=== PATIENT | male | born 1940 | race Caucasian/White ===

== ENCOUNTER 2024-06-07 11:10 | Inpatient (IN) | payer MEDICARE, SELFPAY ==
[2024-06-07] VITALS (10 sets, daily range): BP systolic 127–185; BP diastolic 83–107; PULSE 61–78; RESP 16–19; TEMP 36.4–37; O2SAT 94–99; BMI 22.6
--- NOTE | 2024-06-07 11:21 | CT_ITS ---
WS: [id number] CTA HEAD AND NECK TECHNIQUE: Contrast enhanced CTA of the head and neck with coronal and sagittal reformatted images and maximum intensity projection (MIP) images. NASCET criteria utilized. CLINICAL INFORMATION: R facial droop, slurred speech, balance issues. COMPARISON: None. DLP: 440.[address] scans at [facility] use at least one of these dose optimization techniques: automated exposure control; mA and/or kV adjustment per patient size (includes targeted exams where dose is matched to clinical indication); or iterative reconstruction. FINDINGS: RIGHT: Less than 50% RIGHT ICA stenosis. Mild atheromatous plaque. LEFT: Less than 50% LEFT ICA stenosis. Mild atheromatous plaque. Codominant and patent vertebral arteries bilaterally. Straightening of the normal cervical doses. Moderate spondylitic changes. INTRACRANIAL CTA: Proximal basilar artery is patent. Mild segmental stenosis in the basilar artery. Normal vascularity to the FAMILY CONSUMER SCIENTIST territories bilaterally. Both ICAs are patent at the skull base. Mild cavernous carotid calcification. Small RIGHT A1 segment. Normal vascularity to the LINNETTE and MCA territories bilaterally. No proximal flow-limiting stenosis. CT/CT angio headneck* [id number] IMPRESSION: 1. Less than 50% cervical ICA stenosis bilaterally. 2. Mild atheromatous plaque at both carotid bulbs. 3. No evidence of flow-limiting intracranial stenosis. 4. Codominant and patent vertebral arteries bilaterally.
--- NOTE | 2024-06-07 11:21 | CT_ITS ---
WS: [id number] CT HEAD TECHNIQUE: Noncontrast CT of the head obtained from the skullbase to the vertex. CLINICAL INFORMATION: Symptoms of acute stroke COMPARISON: None. DLP: [address] scans at [facility] use at least one of these dose optimization techniques: automated exposure control; mA and/or kV adjustment per patient size (includes targeted exams where dose is matched to clinical indication); or iterative reconstruction. FINDINGS: No evidence of intracranial hemorrhage or mass effect. Ventricular system and basal cisterns are patent. Mild small vessel changes with moderate parenchymal volume loss. No extra-axial fluid collections. No evidence of mass or mass effect. Vascular calcification. Paranasal sinuses and mastoid air cells are well aerated. .Normal visualized soft tissues. CT/CT head thrombolytic [id number] IMPRESSION: 1. No evidence of intracranial hemorrhage or mass effect. 2. Mild small vessel changes. Moderate parenchymal volume loss. 3. No acute intracranial findings. Notified Michael Almanza MD at 06/07/2024 11:51 AM.
--- NOTE | 2024-06-07 11:21 | XR_ITS ---
WS: [id number] Exam: XR chest 1V portable [id number] Date/Time of Exam: 06/07/2024 12:06 PM Reason For Exam: stroke alert No priors. Lungs are fully expanded and clear. Normal cardiomediastinal silhouette. No pleural effusions. Advanced DJD of the RIGHT shoulder. XR/XR chest 1V portable [id number] IMPRESSION: 1. No acute cardiopulmonary finding.
[2024-06-07 11:26] LABS: Glucose Point of Care 229 mg/dL (70-110)
[2024-06-07 11:32] LABS: Hematocrit 40.4 % (37-53); Red Blood Count 4.25 10^6/uL (3.85-5.65); White Blood Count 7.54 10^3/uL (3.29-11.43)
[2024-06-07 11:33] LABS: Basophils # 0.1 10^3/uL (0.0-0.1); Basophils % 0.7 %; Eosinophils # 0.1 10^3/uL (0.0-0.8); Eosinophils % 0.8 %; Lymphocytes # 2.4 10^3/uL (0.8-4.8); Lymphocytes % 31.3 %; Mean Corpuscular HGB Conc 33.9 g/dL (30-55); Mean Corpuscular Hemoglobin 32.2 pg (27-33); Mean Corpuscular Volume 95.1 fl (82-101); Mean Platelet Volume 9.5 fL (7.4-10.4); Monocytes # 0.7 10^3/uL (0.2-0.9); Monocytes % 9.8 %; Neutrophils # 4.31 10^3/uL (1.8-7.7); Neutrophils % 57.1 %; Nucleated Red Blood Cells % 0 %; Platelet Count 170 10^3/cmm (157-399); Red Cell Distribution Width 13.2 % (12.1-15.1)
[2024-06-07 11:44] LABS: INR 0.97 (0.8-1.2)
[2024-06-07 11:45] LABS: Partial Thromboplastin Time 26.5 SECONDS (23.9-36.7)
[2024-06-07 11:49] LABS: Albumin Level 4.3 g/dL (3.5-5.2); Alcohol Level < 10 mg/dL (0-10); Alkaline Phosphatase 53 U/L (40-130); Blood Urea Nitrogen 17 mg/dL (8-23); Calcium 9.3 mg/dL (8.5-10.5); Carbon Dioxide 21 mmol/L (22-29); Chloride 101 mmol/L (98-107); Creatinine Clr Calc Pharmacy 49.6456; Glucose 252 mg/dL (65-115); Osmolality Calculated 288 mOsm/kg (285-295); Sodium 134 mmol/L (136-145); Total Bilirubin 0.4 mg/dL (0.15-1.2); Total Protein 7.3 g/dL (6.6-8.7)
--- NOTE | 2024-06-07 11:50 | ECG_ITS ---
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 Measurements Intervals [place] Rate: 67 P: 133 [place]: 165 QRS: 111 QRSD: 154 T: 64 QT: 418 QTc: 442 Interpretive Statements ECTOPIC ATRIAL RHYTHM RIGHT AXIS DEVIATION [QRS AXIS > 100] RIGHT BUNDLE BRANCH BLOCK [120+ ms QRS DURATION, UPRIGHT V1, 40+ ms S IN I/aVL/V4/V5/V6] No previous ECG available for comparison Electronically Signed On 06-08-2024 13:08:38 CDT by Isidro Rios M.D. [email or web address] [id number]
[2024-06-07] MEDS: iohexol 350 mg/mL 500 mL Btl (per mL) IV (11:54)
[2024-06-07 12:03] LABS: Alanine Aminotransferase 12 U/L (0-41); Anion Gap 15.9 (5-19); Aspartate Amino Transferase 20 U/L (0-40); Potassium 4.9 mmol/L (3.5-5.1)
[2024-06-07 12:28] LABS: Bacteria Urine None Seen /hpf; Hyaline Casts Urine 0-4 /lpf; RBC Urine 0-2 /hpf (0-2); Squamous Epithelial Cell Urine 0-5 /hpf (0-5); WBC Urine 0-5 /hpf (0-5)
[2024-06-07 12:38] LABS: Add Urine Culture? No; Add Urine Microscopic? YES; Bilirubin Urine Neg (Negative); Blood Urine Neg (Negative); Glucose Urine UA 4+ (Normal); Ketones Urine Negative (Negative); Leukocyte Esterase Urine Negative (Negative); Nitrate Urine Negative (Negative); Protein Urine Neg (Negative); Specific Gravity, Urine 1.015 (1.005-1.030); Urine Appearance Clear (CLEAR); Urine Color Yellow (Yellow); Urobilinogen Urine Norm (Negative); pH Urine 6 (5-7)
[2024-06-07 12:43] LABS: Amphetamines Screen Urine Negative (Negative); Barbiturates Screen Urine Negative (Negative); Benzodiazepines Screen Urine Negative (Negative); Cocaine Screen Urine Negative (Negative); Opiate Screen Urine Negative (Negative); PCP Screen Urine Negative (Negative); THC Screen Urine Negative (Negative)
--- NOTE | 2024-06-07 13:12 | W.ED.NEUROSD ---
HPI - Neuro Symptoms/Deficit General: Chief Complaint: Neuro Symptoms/Deficit Stated Complaint: stroke like symptoms (yesterday) Time Seen by Provider: 06/07/24 11:22 Source: patient and family Mode of arrival: wheelchair Limitations: no limitations History of Present Illness: 83-year-old male that yesterday around 2 PM with his to have right facial droop, slurred speech and difficulty walking. Patient reports to it as a balance or lightheadedness. However he does not ever get syncopal he has just gone to the wall to walk which is new findings. Brought in today after family finally convinced him to get checked out. Slurred speech has improved. Still has right facial droop and the difficulties in ambulation. Last Observed Normal: 14:00 (06/06/24) Related Data Home Medications ?Medication ?Instructions ?Recorded ?Confirmed amlodipine 5 mg tablet 5 mg PO DAILY 06/07/24 06/07/24 flaxseed oil 1,000 mg capsule 1,000 mg PO DAILY 06/07/24 06/07/24 glimepiride 4 mg tablet 4 mg PO DAILY 06/07/24 06/07/24 levothyroxine 25 mcg tablet 25 mcg PO QAM 06/07/24 06/07/24 lisinopril 40 mg tablet 40 mg PO DAILY 06/07/24 06/07/24 metformin 500 mg tablet,extended 2,000 mg PO DAILY 06/07/24 06/07/24 release 24 hr metoprolol succinate 25 mg 25 mg PO DAILY 06/07/24 06/07/24 tablet,extended release 24 hr tmxapjrh-lwg-dgefc acid 200 1 tab PO DAILY 06/07/24 06/07/24 mcg-vit K1 60 mcg-lycopene 600 mcg tablet (Men's Multivitamin) Allergies Allergy/AdvReac Type Severity Reaction Status Date / Time meprobamate (From Equanil) Allergy Intermediate ADR-Confusi Verified 06/07/24 10:06 on Review of Systems General: Reports: 10 or more systems reviewed and unremarkable except in HPI and below PFSH ED PFSH: Social History Smoking and tobacco/nicotine status: never used tobacco/nicotine NIH stroke score NIHSS: Level Of Consciousness - 1a: 0 Level Of Consciousness Questions - 1b: Both Correct Level Of Consciousness Commands - 1c: Both Correct Best Gaze - 2: Normal Visual Hassan - 3: No Visual Loss Facial Palsy - 4: Minor Paralysis Motor Arm Right - 5: No Drift Motor Arm Left - 5: No Drift Motor Leg Right - 6: No Drift Motor Leg Left - 6: No Drift Limb Ataxia - 7: Present In One Limb Sensory - 8: Normal Best Language - 9: No Aphasia Dysarthia - 10: Normal Extinction And Inattention - 11: 0 Score: Total Score: 2 Physical Exam Const: COMMON NORMALS: no acute distress, average body habitus, patient oriented x3, healthy appearing, alert and well nourished GENERAL APPEARANCE: well kempt and well developed ORIENTATION/CONSCIOUSNESS: Yes oriented to person, Yes oriented to place and Yes oriented to time HENMT: COMMON NORMALS: normocephalic, atraumatic, external ears normal and moist oral mucous membranes HEAD & SCALP: normocephalic and atraumatic EXTERNAL EAR: Yes external ears normal Eye: COMMON NORMALS: Equal, round and reactive pupils present, EOMs intact bilaterally and conjunctivae normal CONJUNCTIVA: Yes conjunctivae normal PUPIL: Yes Equal, round and reactive pupils present Neck/C-Spine: COMMON NORMALS: full ROM, no lymphadenopathy, supple and no meningeal signs Chest: CHEST: Yes Symmetrical chest wall rise and No Surgical scars present (Chest) Resp: COMMON NORMALS: normal respiratory effort, No retractions, No use of accessory muscles and clear to auscultation bilaterally AUSCULTATION: clear to auscultation bilaterally Cardio: COMMON NORMALS: regular rate, regular rhythm, S1 normal heart sound present, S2 normal heart sound present, No gallops present (Cardio), No clicks present (Cardio), No murmurs present (Cardio) and No rub (Cardio) RATE: regular rate RHYTHM: regular rhythm HEART SOUNDS: S1 normal heart sound present, S2 normal heart sound present and no murmurs PERIPHERAL PULSES: other (Radial pulses 2+ and symmetric) GI: COMMON NORMALS: Soft to palpation, non-tender and no masses INSPECTION: No abdominal distension PALPATION: Yes Soft to palpation, No Guarding due to palpation present (GI) and No Rebound tenderness present : COMMON NORMALS: Yes no CVA tenderness BLADDER/KIDNEY EXAM: Yes no CVA tenderness Back/Pelvis: COMMON NORMALS: no CVA tenderness Extremity: COMMON NORMALS: normal to inspection, full ROM, capillary refill normal and no clubbing, cyanosis or edema Neuro: COMMON NORMALS: patient oriented x3 SENSORIUM/ORIENTATION: Yes alert, Yes oriented to person, Yes oriented to place and Yes oriented to time MENINGEAL SIGNS: Yes no meningeal signs CRANIAL NERVES: Yes CN normal except as noted SPEECH: speech normal GAIT: Yes Ataxic gait present SENSORY EXAM: Yes extremities Psych: APPEARANCE: Yes well kempt Skin: COMMON NORMALS: no rashes or lesions noted, no wounds, turgor normal and no jaundice GENERAL SKIN EXAM: no rashes or lesions noted and turgor normal Course Vital Signs: Vital signs: Vital Signs Temperature 98.6 F 06/07/24 11:23 Pulse Rate 69 06/07/24 13:46 Respiratory Rate 18 06/07/24 13:46 Blood Pressure 147/107 06/07/24 12:53 Pulse Oximetry 99 06/07/24 12:53 Oxygen Delivery Me thod Room Air 06/07/24 12:27 MDM - Neuro Symptoms/Deficit Medical Decision Making Concern for left posterior cerebellar stroke. CTs have been normal. Patient does have some mild to moderate chronic stenosis on CTA. I spoke with patient and family and since he still having some symptoms. NIH is a 2. Will admit for stroke. Of note stroke alert called when patient was brought in. Outside the window for tPA due to time. No LVO for other interventions. Will get EKG, might have A-fib. Could be reason for his low severity CVA today. Will admit for further workup. Spoke with Dr. Curry. Lab Data 06/07/24 11:26 06/07/24 11:26 Radiology Impressions Chest X-Ray 06/07/24 11:21 IMPRESSION: 1. No acute cardiopulmonary finding. Head CT 06/07/24 11:21 IMPRESSION: 1. No evidence of intracranial hemorrhage or mass effect. 2. Mild small vessel changes. Moderate parenchymal volume loss. 3. No acute intracranial findings. Notified Michael Almanza MD at 06/07/2024 11:51 AM. Head/Neck CTA 06/07/24 11:21 IMPRESSION: 1. Less than 50% cervical ICA stenosis bilaterally. 2. Mild atheromatous plaque at both carotid bulbs. 3. No evidence of flow-limiting intracranial stenosis. 4. Codominant and patent vertebral arteries bilaterally. Laboratory Results WBC 7.54 10^3/uL (3.29-11.43) 06/07/24 11: RBC 4.25 10^6/uL (3.85-5.65) 06/07/24 11: Hgb 13.70 g/dL (11.27-16.99) 06/07/24 11:26 Hct 40.4 % (37-53) 06/07/24 11: MCV 95.1 fl (82-101) 06/07/24 11:26 MCH 32.2 pg (27-33) 06/07/24 11: MCHC 33.9 g/dL (30-55) 06/07/24 11: RDW 13.2 % (12.1-15.1) 06/07/24 11: Plt Count 170 10^3/cmm (157-399) 06/07/24 11: MPV 9.5 fL (7.4-10.4) 06/07/24 11:26 Neut % (Auto) 57.1 % 06/07/24 11:26 Lymph % (Auto) 31.3 % 06/07/24 11:26 [place] % (Auto) 9.8 % 06/07/24 11: Eos % (Auto) 0.8 % 06/07/24 11: Baso % (Auto) 0.7 % 06/07/24 11: Neut # (Auto) 4.31 10^3/uL (1.8-7.7) 06/07/24 11: Lymph # (Auto) 2.4 10^3/uL (0.8-4.8) 06/07/24 11:26 [place] # (Auto) 0.7 10^3/uL (0.2-0.9) 06/07/24 11: Eos # (Auto) 0.1 10^3/uL (0.0-0.8) 06/07/24 11: Baso # (Auto) 0.1 10^3/uL (0.0-0.1) 06/07/24 11:26 Nucleated RBC % (auto) 0 % 06/07/24 11: Nucleated RBCs # 0.0 /100WBC 06/07/24 11:26 PT 13.60 SECONDS (12.1-14.9) 06/07/24 11:26 INR 0.97 (0.8-1.2) 06/07/24 11:26 APTT 26.5 SECONDS (23.9-36.7) 06/07/24 11:26 Sodium 134 mmol/L (136-145) L 06/07/24 11:26 Potassium 4.9 mmol/L (3.5-5.1) 06/07/24 11:26 Chloride 101 mmol/L (98-107) 06/07/24 11:26 Carbon Dioxide 21 mmol/L (22-29) L 06/07/24 11:26 Anion Gap 15.9 (5-19) 06/07/24 11:26 BUN 17 mg/dL (8-23) 06/07/24 11:26 Creatinine 1.1 mg/dL (0.7-1.2) 06/07/24 11:26 GFR Calculation Not Reportable 06/07/24 11:26 Glucose 252 mg/dL (65-115) H 06/07/24 11:26 POC Glucose 229 mg/dL (70-110) H 06/07/24 11:22 Calculated Osmolality 288 mOsm/kg (285-295) 06/07/24 11:26 Calcium 9.3 mg/dL (8.5-10.5) 06/07/24 11:26 Total Bilirubin 0.4 mg/dL (0.15-1.2) 06/07/24 11:26 AST 20 U/L (0-40) 06/07/24 11:26 ALT 12 U/L (0-41) 06/07/24 11:26 Alkaline Phosphatase 53 U/L (40-130) 06/07/24 11:26 Total Protein 7.3 g/dL (6.6-8.7) 06/07/24 11:26 Albumin 4.3 g/dL (3.5-5.2) 06/07/24 11:26 Globulin 3.0 g/dL (1.3-4.6) 06/07/24 11:26 Urine Color Yellow (Yellow) 06/07/24 12:18 Urine Appearance Clear (CLEAR) 06/07/24 12:18 Urine pH 6 (5-7) 06/07/24 12:18 Ur Specific [place] 1.015 (1.005-1.030) 06/07/24 12:18 Urine Protein Neg (Negative) 06/07/24 12:18 Urine Glucose (UA) 4+ (Normal) H 06/07/24 12:18 Urine Ketones Negative (Negative) 06/07/24 12:18 Urine Blood Neg (Negative) 06/07/24 12:18 Urine Nitrate Negative (Negative) 06/07/24 12:18 Urine Bilirubin Neg (Negative) 06/07/24 12:18 Urine Urobilinogen Norm mg/dL (Negative) 06/07/24 12:18 Ur Leukocyte Esterase Negative (Negative) 06/07/24 12:18 Urine RBC 0-2 /hpf (0-2) 06/07/24 12:18 Urine WBC 0-5 /hpf (0-5) 06/07/24 12:18 Ur Squamous Epith Cells 0-5 /hpf (0-5) 06/07/24 12:18 Amorphous Sediment Not Reportable 06/07/24 12:18 Urine Bacteria None seen /hpf (NONE) 06/07/24 12:18 Hyaline Casts 0-4 /lpf H 06/07/24 12:18 Urine Opiates Screen Negative ng/mL (Negative) 06/07/24 12:18 Ur Barbiturates Screen Negative ng/mL (Negative) 06/07/24 12:18 Ur Phencyclidine Scrn Negative ng/mL (Negative) 06/07/24 12:18 Ur Amphetamines Screen Negative ng/mL (Negative) 06/07/24 12:18 U Benzodiazepines Scrn Negative ng/mL (Negative) 06/07/24 12:18 Urine Cocaine Screen Negative ng/mL (Negative) 06/07/24 12:18 U Marijuana (THC) Screen Negative ng/mL (Negative) 06/07/24 12:18 Ethyl Alcohol < 10 mg/dL (0-10) 06/07/24 11:26 All radiology interpretation(s) finalized by discharge (Personally viewed CT head and agree with no bleed. CTA also reviewed personally. No obvious LVO. X-ray unremarkable.) EKG Data EKG 1: I personally reviewed and interpreted this EKG as follows: EKG interpretation date: 06/07/24 EKG interpretation time: 14:06 Prior EKG tracings: not available for review Interpretation: Patient appears to have a slow A-fib, no visible P waves on EKG with a right bundle branch block as well. QTc is 442. AL interval is 165 however I am not sure what it is counting to measured the P waves. Other EKG comments: EKG was not brought to me at time of being performed. Critical Care Time Critical Care Time: Critical Care Time: Yes Total Critical Care Time: 37 Attestation: This case had a high probability of a clinically significant, sudden, or life threatening deterioration of this patient's condition which required my full and direct attention, intervention and personal management. Discharge Plan Discharge Patient Disposition: Admitted As Inpatient Clinical Impression: Cerebrovascular accident Qualifiers: CVA mechanism: embolism Precerebral and cerebral artery: unspecified cerebral artery Qualified Code(s): I63.40 - Cerebral infarction due to embolism of unspecified cerebral artery Condition: Stable Coding Level of Care Code ED Filler Spreader for Alexia Bhatt
[2024-06-07] MEDS: clopidogrel 75 mg Tablet PO (14:30)
[2024-06-07] MEDS: aspirin 325 mg Tablet PO (14:30)
--- NOTE | 2024-06-07 14:31 | PC.NURSE ---
updated pt on process for admission and delays
--- NOTE | 2024-06-07 15:11 | PM.HP ---
Providers/Chief Complaint Admitting Physician: Margie Curry MD Chief Complaint: stroke like symptoms (yesterday) History of Present Illness Lewis Downey is a 83 year old male with past medical history of hypertension, diabetes, MO long time ago (unable to provide history regarding that.), Presented to the hospital today with complaint of ataxia. Patient is a very poor historian. is present at bedside. Patient states that he has trouble getting up from a sitting position as he feels lightheaded dizzy and unsteady on his feet. However he states after little while he starts to feel better however has noticed he has to hold onto things. states that at baseline he has some mental slowness and it takes him a while to understand and process things and it has been like that for quite some time. No actual history of dementia. Yesterday he was out with his son and went to buy a tractor and had an uneventful day. Came home and went to bed. Son later called patient's and stated that dad was not acting right and maybe he had a stroke . Patient's main complaint is dizziness and unsteadiness. He states he will not go to rehab or to a nursing facility however is willing to get evaluated by physical therapy. Review of systems is negative except for the 2 symptoms above. Possibly has a facial droop however difficult to tell. CT head and CTA head and neck negative in ER. When seen at bedside telemetry does show an arrhythmia. Medications/Allergies Home Medications ?Medication ?Instructions ?Recorded ?Confirmed ?Last Taken ?Type amlodipine 5 mg tablet 5 mg PO DAILY 06/07/24 06/07/24 06/07/24 History flaxseed oil 1,000 mg capsule 1,000 mg PO DAILY 06/07/24 06/07/24 06/07/24 History glimepiride 4 mg tablet 4 mg PO DAILY 06/07/24 06/07/24 06/07/24 History levothyroxine 25 mcg tablet 25 mcg PO QAM 06/07/24 06/07/24 06/07/24 History lisinopril 40 mg tablet 40 mg PO DAILY 06/07/24 06/07/24 06/07/24 History metformin 500 mg tablet,extended 2,000 mg PO DAILY 06/07/24 06/07/24 06/07/24 History release 24 hr metoprolol succinate 25 mg 25 mg PO DAILY 06/07/24 06/07/24 06/07/24 History tablet,extended release 24 hr yulobpjd-hvl-gadfb acid 200 1 tab PO DAILY 06/07/24 06/07/24 06/07/24 History mcg-vit K1 60 mcg-lycopene 600 mcg tablet (Men's Multivitamin) Allergies Allergy/AdvReac Type Severity Reaction Status Date / Time meprobamate (From Equanil) Allergy Intermediate ADR-Confusi Verified 06/07/24 10:06 on PFSH Acute PFSH: Social History Smoking and tobacco/nicotine status: never used tobacco/nicotine Vitals/I&O/Wt Last Vital Signs Temp 98.6 F 06/07/24 11:23 Pulse 66 06/07/24 14:30 Resp 18 06/07/24 13:46 BP 165/107 06/07/24 14:30 Pulse Ox 99 06/07/24 14:30 O2 Del Method Room Air 06/07/24 12:27 Weight last 48 hrs Weight 69.853 kg Physical Exam Narrative: General: Alert oriented x3, patient seen in bed appearing comfortable at this time, at bedside. HEENT: Normocephalic, atraumatic, EOMI, breathing room air. Cardio: Sinus arrhythmia telemetry, variable S1-S2, Respiratory: Good bilateral air entry, no wheezes no rhonchi appreciated GI: Abdomen soft, nontender, nondistended, bowel sounds + Behavior: Appropriate and cooperative Extremities: No edema bilateral lower extremities Data 06/07/24 11:26 06/07/24 11:26 A&P Assessment and plan (1) Ataxia: (2) Dizziness: (3) Lightheadedness: (4) TIA (transient ischemic attack): (5) Arrhythmia: (6) Hypertension: (7) Diabetes mellitus: Plan #TIA? #Cognitive decline? #Ataxia, lightheadedness dizziness #Hypertension #Diabetes mellitus #History of remote MO. #Questionable arrhythmia on telemetry ? CT and CTA head is negative for stroke. ? Check MRI brain without contrast. Will rule out partial circulation stroke ? Possibly orthostatic hypotension? ? Seems to have symptoms with position change however has a poor historian. ? At 1 point complained of chest pain that he usually has however he states it only happened when he exerted himself. It was more like a tightness in his chest. ? Check troponins EKG ? Placed on telemetry, will monitor for arrhythmias ? Check hemoglobin A1c, lipid profile, TSH ? PT OT ? Speech therapy ? Blood pressure elevated 165/107. Symptoms started few days ago. ? Continue amlodipine 5 daily. ? Hold lisinopril. ? Hold, provide ? Low-dose intensity sliding scale insulin ? Will hold beta-steven. Full code DVT prophylaxis: Heparin SQ twice daily PDMP PDMP Reviewed: Not Reviewed Attestations Medical Necessity Statement*: Patient require workup for weakness dizziness, questionable ataxia, questionable arrhythmia. Diagnoses Ataxia R27.0 Dizziness R42 Lightheadedness R42 TIA (transient ischemic attack) G45.9 Arrhythmia I49.9 Hypertension I10 Diabetes mellitus E11.9
--- NOTE | 2024-06-07 15:22 | MRR_ITS ---
PROCEDURE INFORMATION: Exam: MR Head Without Contrast Exam date and time: 06/07/2024 4:38 PM Age: 83 years old Clinical indication: Weakness, extremity; Additional info: TIA? Stroke? , Lightheaded/dizzy, ataxia? TECHNIQUE: Imaging protocol: Magnetic resonance imaging of the head without contrast. COMPARISON: CT angio headneck* [id number] 06/07/2024 11:42 AM FINDINGS: Brain: No acute infarct. No hemorrhage. No edema. Moderate diffuse cerebral atrophy and FLAIR T2 hyperintense signal abnormality within the periventricular and deep white matter tracts consistent with chronic small vessel ischemic disease. Cerebral ventricles: Normal. No ventriculomegaly. Bones: Unremarkable. Paranasal sinuses: Normal as visualized. No acute sinusitis. Mastoid air cells: Normal as visualized. No mastoid effusion. Orbital cavities: Unremarkable. Soft tissues: Unremarkable. MR/MR head wo con* [id number] IMPRESSION: No acute ischemia.
[2024-06-07 15:52] LABS: Estmated Average Glucose 220; Hemoglobin A1C 9.3 % (4.0-6.0)
[2024-06-07 16:04] LABS: Cholesterol 184 mg/dL (0-200); HDL Cholesterol 40 mg/dL (60-100); LDL Cholesterol Calculated 109 mg/dL (50-129); Thyroid Stimulating Hormone 7.19 uIU/mL (0.27-4.20); Triglycerides 174 mg/dL (0-150); VLDL Cholestrol Calculation 35 mg/dL (0-30)
[2024-06-07] MEDS: heparin 5,000 unit/mL INJ 1 mL 5000 UNIT SUBCUT (16:16)
[2024-06-07] MEDS: sodium chloride 0.9% 1,000 ML 75 ML IV (16:16)
[2024-06-07 16:31] LABS: Vitamin B12 656 pg/mL (232-1245)
--- NOTE | 2024-06-07 17:24 | ECG_ITS ---
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 Measurements Intervals [place] Rate: 61 P: 57 MD: 166 QRS: 46 QRSD: 155 T: 37 QT: 429 QTc: 436 Interpretive Statements SINUS RHYTHM RIGHT BUNDLE BRANCH BLOCK [120+ ms QRS DURATION, UPRIGHT V1, 40+ ms S IN I/aVL/V4/V5/V6] Compared to ECG 06/07/2024 11:50:59 Ectopic atrial rhythm no longer present Right-axis deviation no longer present Electronically Signed On 06-08-2024 13:19:05 CDT by Isidro Rios M.D. [id number]
[2024-06-07 17:49] LABS: Troponin(5th) Baseline 19 ng/L (0-15)
[2024-06-07 19:29] LABS: Troponin 5 2HR 15.47 ng/L (0-15)
[2024-06-07 19:30] LABS: Troponin 5 2HR Delta -3.53 ABS# (0-10)
[2024-06-07] MEDS: atorvastatin 40 mg Tablet 80 MG PO (19:58)
--- NOTE | 2024-06-07 21:24 | ECG_ITS ---
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 Measurements Intervals [place] Rate: 73 P: 56 SD: 164 QRS: 54 QRSD: 157 T: 39 QT: 405 QTc: 448 Interpretive Statements SINUS RHYTHM RIGHT BUNDLE BRANCH BLOCK [120+ ms QRS DURATION, UPRIGHT V1, 40+ ms S IN I/aVL/V4/V5/V6] Compared to ECG 06/07/2024 16:01:37 No significant changes Electronically Signed On 06-08-2024 13:15:44 CDT by Isidro Rios M.D. [id number]
[2024-06-08] VITALS (8 sets, daily range): BP systolic 111–168; BP diastolic 73–97; PULSE 62–95; RESP 15–18; TEMP 36.4–36.6; O2SAT 94–96
--- NOTE | 2024-06-08 03:44 | ECG_ITS ---
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 Measurements Intervals [place] Rate: 59 P: 63 [place]: 166 QRS: 62 QRSD: 150 T: 46 QT: 423 QTc: 422 Interpretive Statements SINUS BRADYCARDIA RIGHT BUNDLE BRANCH BLOCK [120+ ms QRS DURATION, UPRIGHT V1, 40+ ms S IN I/aVL/V4/V5/V6] Compared to ECG 06/07/2024 20:57:09 Sinus rhythm no longer present Electronically Signed On 06-08-2024 13:00:04 CDT by Isidro Rios M.D. [id number]
[2024-06-08 03:59] LABS: Basophils % 0.7 %; Eosinophils # 0.1 10^3/uL (0.0-0.8); Eosinophils % 1.4 %; Hematocrit 36.1 % (37-53); Lymphocytes % 36.1 %; Mean Corpuscular HGB Conc 33.8 g/dL (30-55); Mean Corpuscular Hemoglobin 32.2 pg (27-33); Mean Corpuscular Volume 95.3 fl (82-101); Mean Platelet Volume 9.4 fL (7.4-10.4); Monocytes # 0.7 10^3/uL (0.2-0.9); Neutrophils # 2.76 10^3/uL (1.8-7.7); Neutrophils % 49.6 %; Nucleated Red Blood Cells % 0 %; Platelet Count 171 10^3/cmm (157-399); Red Blood Count 3.79 10^6/uL (3.85-5.65); Red Cell Distribution Width 13.2 % (12.1-15.1); White Blood Count 5.57 10^3/uL (3.29-11.43)
[2024-06-08 04:14] LABS: Blood Urea Nitrogen 15 mg/dL (8-23); Calcium 8.8 mg/dL (8.5-10.5); Carbon Dioxide 23 mmol/L (22-29); Chloride 106 mmol/L (98-107); Glucose 154 mg/dL (65-115); Magnesium 1.7 mg/dL (1.7-2.3); Osmolality Calculated 290 mOsm/kg (285-295); Sodium 138 mmol/L (136-145)
[2024-06-08 04:15] LABS: Anion Gap 12.8 (5-19); Potassium 3.8 mmol/L (3.5-5.1)
--- NOTE | 2024-06-08 04:16 | PC.NURSE ---
Patient c/o chest pain. Patient states it is worse when being touched. EKG taken. When placing EKG stickers on patient's chest, patient states that it hurt when I touched him. Patient states he has not been able to sleep all night. Dr. Vaz notified. 0.5 mg Ativan x1 ordered.
[2024-06-08] MEDS: heparin 5,000 unit/mL INJ 1 mL 5000 UNIT SUBCUT ×2 (04:26→17:29)
[2024-06-08] MEDS: LORazepam 0.5 mg Tablet PO (04:26)
[2024-06-08] MEDS: levothyroxine 25 mcg Tablet PO (04:26)
[2024-06-08] MEDS: sodium chloride 0.9% 1,000 ML 75 ML IV (04:27)
[2024-06-08] MEDS: pantoprazole DR 40 mg Tablet PO (08:12)
[2024-06-08] MEDS: clopidogrel 75 mg Tablet PO (08:13)
[2024-06-08] MEDS: aspirin 81 mg EC Tablet PO (08:13)
--- NOTE | 2024-06-08 12:19 | P.PN_ITS ---
Subjective 2 Subjective: Seen this morning. Overnight patient had an episode of chest pain. Ativan had to be given. Chest pain was reproducible to palpation in the middle of his chest. Patient did try to walk with physical therapy this morning however after walking up to the bathroom he got severely short of breath and started getting dizzy. He had to sit down. Orthostatic vitals were negative. MRI negative Telemetry reviewed: Intermittent bradycardia present. Vitals/I&O/Wt Last Vital Signs Temp 97.8 F 06/08/24 11:31 Pulse 72 06/08/24 11:31 Resp 15 06/08/24 11:31 BP 168/89 06/08/24 11:31 Pulse Ox 94 06/08/24 11:31 O2 Del Method Room Air 06/08/24 11:31 06/07/24 06/08/24 06/08/24 22:59 06:59 14:59 Intake Total 118 / 118 913.75 / 1031.75 120 / 120 Output Total 425 / 425 800 / 1225 Balance -307 / -307 113.75 / -193.25 120 / 120 Weight last 48 hrs Weight 67.993 kg Weight 67.358 kg Weight 69.853 kg Physical Exam 2 Narrative: General: Alert oriented x3, patient seen in bed appearing comfortable at this time, HEENT: Normocephalic, atraumatic, EOMI, breathing room air. Cardio: Sinus arrhythmia telemetry, variable S1-S2, Respiratory: Good bilateral air entry, no wheezes no rhonchi appreciated GI: Abdomen soft, nontender, nondistended, bowel sounds + Behavior: Appropriate and cooperative Extremities: No edema bilateral lower extremities Data 06/08/24 02:46 06/08/24 02:46 A&P Assessment and plan (1) Ataxia: (2) Dizziness: (3) Lightheadedness: (4) Arrhythmia: (5) Hypertension: (6) Diabetes mellitus: (7) Dyspnea on exertion: Plan # Lightheadedness dizziness, dyspnea on exertion., Possible arrhythmia? #Ataxia, lightheadedness dizziness #Hypertension #Diabetes mellitus #History of remote [place]. #Questionable arrhythmia on telemetry ? CT and CTA head is negative for stroke. ? Check MRI brain without contrast. Will rule out partial circulation stroke ? Possibly orthostatic hypotension? ? Seems to have symptoms with position change however has a poor historian. ? At 1 point complained of chest pain that he usually has however he states it only happened when he exerted himself. It was more like a tightness in his chest. ? Check troponins EKG ? Placed on telemetry, will monitor for arrhythmias ? Check hemoglobin A1c, lipid profile, TSH ? PT OT ? Speech therapy ? Blood pressure elevated 165/107. Symptoms started few days ago. ? Continue amlodipine 5 daily. ? Hold lisinopril. ? Hold, provide ? Low-dose intensity sliding scale insulin ? Will hold beta-steven. Full code DVT prophylaxis: Heparin SQ twice daily 06/08/2024 CT head negative, CTA head and neck negative Head MRI negative for stroke or ischemia does show chronic microvascular changes Patient is still symptomatic with his original complaint of dyspnea on exertion and dizziness upon exertion. Orthostatic vitals are negative. Question of underlying arrhythmia? Telemetry reviewed. Patient does have periods of bradycardia down to 48-49 however have not noted a value lower than that so far. ? Had an episode of chest pain overnight which was reproducible to palpation most likely musculoskeletal in origin however given patient's symptoms cardiac etiology cannot be ruled out. Baseline troponin 19, 15.47, 16.10. ? Continue to monitor in hospital on telemetry at this time ? Order stress testing for Monday morning. Patient agreeable. ? I will continue on aspirin Plavix atorvastatin until stress testing. ? Continue to hold beta-steven. Patient was on Toprol 25 daily. ? Will consider cardiology consult going forward. ? Stop IV fluids. ?Continue amlodipine 5 daily. ? Hold lisinopril from home. PDMP PDMP Reviewed: Not Reviewed Attestations 2 Medical Necessity Statement*: Patient will require inpatient monitoring on telemetry for possibility of underlying arrhythmia. Plan for stress test on Monday. Diagnoses Ataxia R27.0 Dizziness R42 Lightheadedness R42 Arrhythmia I49.9 Hypertension I10 Diabetes mellitus E11.9 Dyspnea on exertion R06.09
[2024-06-08] MEDS: amlodipine 5 mg Tablet PO (12:30)
--- NOTE | 2024-06-08 15:22 | USCV_ITS ---
Lewis Downey Age: 83 Gender: M : 1940 Exam Date: 06/08/2024 08:42 Ordering Phys: Margie Curry MD Technologist: Juventino Scott Exam Location: [facility] – [place] Indication: stroke, tia BP: 151 / 87 HR: 74 Rhythm: Sinus Technical Quality: Adequate MEASUREMENTS (Male / Female) Normal Values 2D ECHO LV Diastolic Diameter PLAX 4.8 cm 4.2 - 5.9 / 3.9 - 5.3 cm IVS Diastolic Thickness 1.5 cm 0.6 - 1.0 / 0.6 - 0.9 cm IVS Systolic Thickness 1.6 cm LVPW Diastolic Thickness 1.5 cm 0.6 - 1.0 / 0.6 - 0.9 cm LVPW Systolic Thickness 2.4 cm LVOT Diameter 2.0 cm LV Ejection Fraction 2D Teich 73.9 % LV Ejection Fraction MOD 4C 63.9 % LV Ejection Fraction MOD 2C 67.6 % LV Ejection Fraction 2C AL 68.9 % LA Diameter 3.4 cm RA Systolic Volume 4C AL 32.5 ml RA Systolic Volume 4C MOD 31.5 ml LA Sys Volume AL 45.6 cm cubed LA Sys Volume Index AL 25.3 cm cubed/m squared Aorta at Sinotubular Diameter 3.2 cm M-MODE LA Ao Ratio MM 1.3 AV Cusp Separation MM 1.4 cm DOPPLER AV Peak Velocity 154.3 cm/s LVOT Peak Velocity 88.0 cm/s AV Area Cont Eq vti 2.1 cm squared AV Area Cont Eq pk 1.8 cm squared MV Peak Velocity 116.0 cm/s MV Area PHT 3.0 cm squared Mitral E to A Ratio 0.5 TV Peak Velocity 197.0 cm/s TR Peak Velocity 202.0 cm/s TR Peak Gradient 16.3 mmHg TR Mean Velocity 165.0 cm/s TR Mean Gradient 11.2 mmHg TR Velocity Time Integral 72.0 cm PV Peak Velocity 93.0 cm/s RV Ejection Time 0.3 s FINDINGS Left Ventricle Normal left ventricular size and systolic function, EF 64%. Mild concentric left-ventricular hypertrophy.Grade I/IV diastolic dysfunction (abnormal relaxation filling pattern), normal to mildly elevated filling pressures. Right Ventricle The right ventricle is normal in size and function. Right Atrium The right atrium is normal in size. Left Atrium Mildly increased left atrial size. Mitral Valve Thickened mitral valve. Moderate mitral annular calcification. Aortic Valve Thickened aortic valve. Tricuspid Valve Trace tricuspid valve regurgitation. Estimated pulmonary artery peak systolic pressure possibly within normal limits Pulmonic Valve Pulmonic valve not well visualized. Pericardium Normal pericardium without effusion. Aorta Normal aortic annulus size. IVC Inferior vena cava not visualized. CONCLUSIONS Normal left ventricular size and systolic function, EF 64%. Mild concentric left-ventricular hypertrophy.Grade I/IV diastolic dysfunction (abnormal relaxation filling pattern), normal to mildly elevated filling pressures. Mildly increased left atrial size. Thickened mitral valve. Moderate mitral annular calcification. Thickened aortic valve. Trace tricuspid valve regurgitation. Estimated pulmonary artery peak systolic pressure possibly within normal limits. There is no pericardial effusion. No similar previous studies are available for comparison Dr Isidro Rios MD [facility] (Electronically Signed) Final Date: 08 June 2024 10:10 S
[2024-06-08] MEDS: atorvastatin 40 mg Tablet 80 MG PO (20:55)
[2024-06-09] VITALS (14 sets, daily range): BP systolic 146–171; BP diastolic 78–90; PULSE 66–77; RESP 16–18; TEMP 36.4–36.7; O2SAT 94–98
[2024-06-09 04:04] LABS: Basophils % 0.8 %; Eosinophils # 0.1 10^3/uL (0.0-0.8); Eosinophils % 1.6 %; Hematocrit 35.8 % (37-53); Lymphocytes # 1.8 10^3/uL (0.8-4.8); Lymphocytes % 36.5 %; Mean Corpuscular HGB Conc 33.8 g/dL (30-55); Mean Corpuscular Hemoglobin 31.3 pg (27-33); Mean Corpuscular Volume 92.7 fl (82-101); Mean Platelet Volume 9.2 fL (7.4-10.4); Monocytes # 0.5 10^3/uL (0.2-0.9); Monocytes % 10.5 %; Neutrophils % 50.4 %; Nucleated Red Blood Cells % 0 %; Platelet Count 151 10^3/cmm (157-399); Red Blood Count 3.86 10^6/uL (3.85-5.65); Red Cell Distribution Width 13.2 % (12.1-15.1); White Blood Count 4.96 10^3/uL (3.29-11.43)
[2024-06-09 04:32] LABS: Anion Gap 14.9 (5-19); Blood Urea Nitrogen 14 mg/dL (8-23); Calcium 8.7 mg/dL (8.5-10.5); Carbon Dioxide 21 mmol/L (22-29); Chloride 107 mmol/L (98-107); Creatinine Clr Calc Pharmacy 54.0211; Glucose 134 mg/dL (65-115); Magnesium 1.7 mg/dL (1.7-2.3); Osmolality Calculated 290 mOsm/kg (285-295); Potassium 3.9 mmol/L (3.5-5.1); Sodium 139 mmol/L (136-145)
[2024-06-09] MEDS: levothyroxine 25 mcg Tablet PO (05:05)
[2024-06-09] MEDS: heparin 5,000 unit/mL INJ 1 mL 5000 UNIT SUBCUT ×2 (05:05→16:47)
[2024-06-09] MEDS: amlodipine 5 mg Tablet PO (08:49)
[2024-06-09] MEDS: pantoprazole DR 40 mg Tablet PO (08:49)
[2024-06-09] MEDS: clopidogrel 75 mg Tablet PO (08:49)
[2024-06-09] MEDS: aspirin 81 mg EC Tablet PO (08:49)
--- NOTE | 2024-06-09 12:57 | P.PN_ITS ---
Subjective 2 Subjective: Patient still complains of dyspnea on exertion. Awaiting stress test in AM. Vitals/I&O/Wt Last Vital Signs Temp 97.7 F 06/09/24 11:16 Pulse 76 06/09/24 11:16 Resp 16 06/09/24 11:16 BP 165/89 06/09/24 11:16 Pulse Ox 96 06/09/24 11:16 O2 Del Method Room Air 06/09/24 11:16 06/08/24 06/09/24 06/09/24 22:59 06:59 14:59 Intake Total 240 / 1078.75 600 / 600 Balance 240 / 1078.75 600 / 600 Weight last 48 hrs Weight 67.449 kg Weight 67.993 kg Weight 67.358 kg Physical Exam 2 Narrative: General: Alert oriented x3, patient seen in bed appearing comfortable at this time, HEENT: Normocephalic, atraumatic, EOMI, breathing room air. Cardio: Sinus arrhythmia telemetry, variable S1-S2, Respiratory: Good bilateral air entry, no wheezes no rhonchi appreciated GI: Abdomen soft, nontender, nondistended, bowel sounds + Behavior: Appropriate and cooperative Extremities: No edema bilateral lower extremities Data 06/09/24 03:12 06/09/24 03:12 A&P Assessment and plan (1) Ataxia: (2) Dizziness: (3) Lightheadedness: (4) Arrhythmia: (5) Hypertension: (6) Diabetes mellitus: (7) Dyspnea on exertion: Plan # Lightheadedness dizziness, dyspnea on exertion., Possible arrhythmia? #Ataxia, lightheadedness dizziness #Hypertension #Diabetes mellitus #History of remote [place]. #Questionable arrhythmia on telemetry ? CT and CTA head is negative for stroke. ? Check MRI brain without contrast. Will rule out partial circulation stroke ? Possibly orthostatic hypotension? ? Seems to have symptoms with position change however has a poor historian. ? At 1 point complained of chest pain that he usually has however he states it only happened when he exerted himself. It was more like a tightness in his chest. ? Check troponins EKG ? Placed on telemetry, will monitor for arrhythmias ? Check hemoglobin A1c, lipid profile, TSH ? PT OT ? Speech therapy ? Blood pressure elevated 165/107. Symptoms started few days ago. ? Continue amlodipine 5 daily. ? Hold lisinopril. ? Hold, provide ? Low-dose intensity sliding scale insulin ? Will hold beta-steven. Full code DVT prophylaxis: Heparin SQ twice daily 06/08/2024 CT head negative, CTA head and neck negative Head MRI negative for stroke or ischemia does show chronic microvascular changes Patient is still symptomatic with his original complaint of dyspnea on exertion and dizziness upon exertion. Orthostatic vitals are negative. Question of underlying arrhythmia? Telemetry reviewed. Patient does have periods of bradycardia down to 48-49 however have not noted a value lower than that so far. ? Had an episode of chest pain overnight which was reproducible to palpation most likely musculoskeletal in origin however given patient's symptoms cardiac etiology cannot be ruled out. Baseline troponin 19, 15.47, 16.10. ? Continue to monitor in hospital on telemetry at this time ? Order stress testing for Monday. Patient agreeable. ? I will continue on aspirin Plavix atorvastatin until stress testing. ? Continue to hold beta-steven. Patient was on Toprol 25 daily. ? Will consider cardiology consult going forward. ? Stop IV fluids. ?Continue amlodipine 5 daily. ? Hold lisinopril from home. 06/09/2024 Plan for cardiac stress test in AM. Continue to monitor on telemetry Continue aspirin Plavix atorvastatin until stress test. Continue to hold beta- steven at this time. Continue amlodipine 10 mg daily. Placed on lisinopril 10 mg daily. N.p.o. tonight. PDMP PDMP Reviewed: Not Reviewed Attestations 2 Medical Necessity Statement*: Continue telemetry monitoring, stress test in AM. Diagnoses Ataxia R27.0 Dizziness R42 Lightheadedness R42 Arrhythmia I49.9 Hypertension I10 Diabetes mellitus E11.9 Dyspnea on exertion R06.09
--- NOTE | 2024-06-09 12:59 | ECG_ITS ---
[facility] Test Date: 2024-06-10 Pat Name: Lewis Downey Department: Room: 252 Gender: Male Radio Operator: : 1940 Requested By: Margie Curry Order Number: [id number] Silver MD: CHINMAY DELA CRUZ Interpretive Statements Lung unchanged pre/post procedure; Intraprocedure shortess of breath; Symptoms resoled by discharge NOTE: Please note that this is the electrocardiogram portion of the Lexiscan/Sestamibi stress test. The perfusion scan will be documented separately. DATA: Baseline heart rate was 65 beats per minute. Baseline blood pressure was 140/87 millimeters of mercury. Target heart rate was 137. Maximum heart rate achieved was 93. which was 67% of the predicted target heart rate. Maximum blood pressure was 146/90 millimeters of mercury. The reason for ending the test was completion of the protocol. The patient did not experience any symptoms. ELECTROCARDIOGRAM: BASELINE: Sinus rhythm. Normal axis. Incomplete right bundle branch block otherwise, no ST-T changes suggestive of ischemia noted. No arrhythmia noted. EXERCISE: After Lexiscan injection, no ST-T changes suggestive of ischemic noted. No arrhythmia noted. CONCLUSION: Please note due to baseline abnormality of the EKG specificity and sensitivity of the EKG portion of LexiScan MIBI stress test will be low 1. EKG not suggestive of ischemia 2. Lexiscan injection unremarkable. 3. Perfusion scan will be documented separately. Electronically Signed On 06-10-2024 19:19:49 CDT by CHINMAY DELA CRUZ [email or web address]
[2024-06-09] MEDS: lisinopril 10 mg Tablet PO (14:00)
[2024-06-09] MEDS: atorvastatin 40 mg Tablet 80 MG PO (21:34)
[2024-06-10] VITALS (10 sets, daily range): BP systolic 128–168; BP diastolic 72–94; PULSE 65–85; RESP 15–23; TEMP 36.4–37.1; O2SAT 95–99; BMI 22.5
[2024-06-10 03:13] LABS: Basophils # 0.1 10^3/uL (0.0-0.1); Eosinophils # 0.1 10^3/uL (0.0-0.8); Eosinophils % 1.5 %; Hematocrit 35.8 % (37-53); Lymphocytes # 1.9 10^3/uL (0.8-4.8); Lymphocytes % 36.9 %; Mean Corpuscular HGB Conc 33.5 g/dL (30-55); Mean Corpuscular Hemoglobin 31.3 pg (27-33); Mean Corpuscular Volume 93.2 fl (82-101); Mean Platelet Volume 9.6 fL (7.4-10.4); Monocytes # 0.6 10^3/uL (0.2-0.9); Monocytes % 11.9 %; Neutrophils # 2.53 10^3/uL (1.8-7.7); Neutrophils % 48.3 %; Nucleated Red Blood Cells % 0 %; Platelet Count 165 10^3/cmm (157-399); Red Blood Count 3.84 10^6/uL (3.85-5.65); Red Cell Distribution Width 13.1 % (12.1-15.1); White Blood Count 5.23 10^3/uL (3.29-11.43)
[2024-06-10 03:32] LABS: Anion Gap 14.9 (5-19); Blood Urea Nitrogen 16 mg/dL (8-23); Calcium 8.7 mg/dL (8.5-10.5); Carbon Dioxide 21 mmol/L (22-29); Chloride 106 mmol/L (98-107); Creatinine Clr Calc Pharmacy 48.9535; Glucose 159 mg/dL (65-115); Magnesium 1.8 mg/dL (1.7-2.3); Osmolality Calculated 291 mOsm/kg (285-295); Potassium 3.9 mmol/L (3.5-5.1); Sodium 138 mmol/L (136-145)
[2024-06-10] MEDS: levothyroxine 25 mcg Tablet PO (05:57)
[2024-06-10] MEDS: heparin 5,000 unit/mL INJ 1 mL 5000 UNIT SUBCUT ×2 (05:57→17:16)
[2024-06-10] MEDS: regadenoson 0.4 Mg/5 ml Syringe IVP (07:29)
[2024-06-10] MEDS: amlodipine 5 mg Tablet 10 MG PO (09:45)
[2024-06-10] MEDS: lisinopril 10 mg Tablet PO (09:46)
[2024-06-10] MEDS: pantoprazole DR 40 mg Tablet PO (09:46)
[2024-06-10] MEDS: aspirin 81 mg EC Tablet PO (09:46)
[2024-06-10] MEDS: clopidogrel 75 mg Tablet PO (09:46)
--- NOTE | 2024-06-10 10:03 | PC.NURSE ---
payroll and benefits coordinator rounds- gave patient stroke education book, patient says he is ready to eat and go home, stress test completed this am. RN and [employer] bedside as well.
--- NOTE | 2024-06-10 11:02 | PC.CHAP ---
Pastoral Care Encounter/Spiritual Assessment Type of Contact [] Declined electrical electronics engineers visit [] Patient/Family/Request visit [] Outpatient visit [] Follow-up visit [] Physician referral [] Code/Alert [x] Routine visit [] Staff referral [] Actively dying [] Patient sleeping [] Family support [] [] Out of room [] Palliative care [] [] Receiving care in room [] Pre-surgical visit [] Trauma [] Long length of stay [] ICU visit [] Other: Relational/Emotional Strength [] Patient feels connected with others/family/visitors/staff [] Distress [] Loneliness/isolation [] Abandonment Spirituality of Patient [x] Person of Naz [] Attends Religion of their Naz [x] Believes in Prayer [] Reads Bible or Moravian materials [] There are Spiritual issues to be addressed Director Security Risk Management Interventions [x] Prayer [x] Active listening [] Non-anxious presence [] Spiritual/emotional support [] Crisis/trauma care [] Spiritual counseling [] Bereavement support [] Provided bereavement packet [x] Provided Bible/devotional materials [] Provided toy/stuffed animal, coloring book to patient or family member [] Provided Communion [] Anointing/[place] [] Salvation [x] Completed spiritual assessment [] Other: Impact on Illness or Injury [] Angry [] Fearful [] Anxious [] Often cries [] Exhaustion [] Unable to work [] Unable to attend rastafari [] Unable to walk/stand [] Unable to read [] Unable to drive [] Unable to eat/drink [] Unable to sleep [] Unable to be with family [] Patient intubated [] Other: Summary Time spent with patient 10 min
--- NOTE | 2024-06-10 11:34 | PC.SOCIAL ---
IMM Update pg 2 of IMM Updated and reviewed w/ patient. Copy provided and copy dated, initialed and placed in chart.
--- NOTE | 2024-06-10 12:16 | PC.OT ---
hold OT treatment today due to stress test
--- NOTE | 2024-06-10 12:59 | NMCV_ITS ---
NM geri perf SPECT r/s* [id number] Lewis Downey Age: 83 Gender: M : 1940 Exam Date: 06/10/2024 07:04 Ordering Phys: Margie uCrry MD Technologist: ZAC Buenrostro Exam Location: [facility] Indications: CP STRESS TEST [facility] IMAGE PROTOCOL Rest/Stress 1 Lexiscan Day Radiopharmaceutical Dose (mCi) Administration Site Administered by Rest: Tc-99m 10.5 IV ZAC Buenrostro Sestamibi Stress:Tc-99m 33 IV ZAC Macdonald Sestamibi Rest: 10-Jun-2024 60 Discovery 630 Stress: 10-Jun-2024 30 Discovery 630 0.4mg Lexiscan. Images obtained in supine and prone position. SPECT RESULTS Technical Quality: Good Raw Data Analysis: Normal Image Corrections: No attenuation or motion correction applied Summed Stress Score: 0 Summed Rest Score: 0 Summed Difference Score: 0 PERFUSION FINDINGS Medium size area of mild to moderate reversibility noted in basal to distal inferior wall suggestive of RCA obstructive coronary artery disease. FUNCTIONAL RESULTS (calculated via Gated SPECT) Stress Image LV EF (%): 74 Stress EDV (mL):72 TID: 1.38 Stress ESV (mL):19 FUNCTIONAL FINDINGS: There is normal left ventricular systolic function. TID ratio is elevated which could be secondary to left ventricle hypertrophy/ Subendocardial ischemia however cannot rule out multivessel coronary artery disease IMPRESSIONS This study shows medium size area of moderate ischemia in the inferior wall of the left ventricle. EKG segment will be documented separately. Mitch Brown MD (Electronically Signed) Final Date: 10 June 2024 10:29 S
--- NOTE | 2024-06-10 13:52 | P.CONIM_ITS ---
<Statement entered by Mitch Brown MD - 06/10/24 20:47> Patient was evaluated and cared for in conjunction with an advanced practice practitioner. I personally examined the patient and reviewed the chart and all pertinent data including imaging, telemetry, and laboratory results. I discussed the patient in detail with the advanced practice practitioner. Please see their note for complete H&P testing result and agreed upon plan of care for the patient. 83-year-old male past medical history significant for smoking diabetes mellitus presented with TIA, he complained of worsening of shortness of breath with occasional chest pressure upon [id number] exertion for that he underwent stress test which turns out to be abnormal and positive in the inferior region. There is a reason we have been asked to assist in patient's care. GENERAL: Patient is alert, awake and oriented x3. HEART: Regular S1 and S2. No murmur, rub or gallop. LUNGS: Clear to auscultate bilaterally. CENTRAL NERVOUS SYSTEM: Grossly nonfocal. EXTREMITIES: Lower extremities with out edema bilaterally. Assessment and plan TIA Abnormal stress Worsening of shortness of breath could be angina: Hypertension Hyperlipidemia Diabetes mellitus Given moderate area of abnormality in the inferior region we will proceed with left heart cath tomorrow. Patient already is on clopidogrel and heparin. Will continue he will be n.p.o. overnight proceed with left heart cath in the morning. Patient has been explained all risk-benefit and alternative for the procedure he would like to proceed with it. Providers/Reason For Consult 2 Consulting Physician/Specialty*: Mitch Brown MD Reason for Consult*: Abnormal stress test Requesting Physician: Dr. Hazel Attending Physician: Christiana Hazel MD History of Present Illness History of Present Illness This is a very pleasant 83-year-old gentleman who came into the ER about 3 days ago with a main complaint of strokelike symptoms. Patient's daughter is present during the time of my evaluation. Per patient he was sitting on the tractor when his family member saw him slumped in his chair and he had developed facial drooping on the right side as well as loss of function on that side and slurred speech. This was transient and resolved once he came in. He denies any significant cardiac history. He states he has a history of hypertension and diabetes. States he is a former smoker. He states he does not know if he has high cholesterol. Blood pressure is currently high at 168/86. They were allowing permissive hypertension but have added amlodipine 10 mg p.o. today. Patient states he denies any recent chest pain. He states during his episode he had some palpitations. He did complain of shortness of breath on exertion that was chronic. Due to this he underwent a stress test. This showed a medium area of ischemia in the inferior wall. He does have a right bundle branch block seen on EKG. Creatinine is stable at 1.1. Troponin was stable at 19-15-16 with delta being negative. He denies any orthopnea, chest pain, or shortness of breath at this time. MRI of the brain as well as CT of head and neck was negative for stroke or carotid disease. He states he may have had a stroke in the past, but he is not sure. Echo was performed that showed normal EF with mild left-ventricular hypertrophy. Grade I/IV diastolic dysfunction was seen. Review of Systems 2 Narrative: Consitutional: denies fever, chills, body aches, or changes in appetite, denies abnormal weight loss Eyes: Denies changes in vision Card: Denies chest pain, palpitations, irregular heart rhythm, edema, syncope, reports shortness of breath on exertion relieved with rest, denies orthopnea, leg pain with exertion Resp: Denies shortness of breath, denies hemoptysis, denies cough GI: denies abdominal pain, denies nausea or voimting, denies blood in stool Musc: Denies extremity pain, denies limited range of motion or recent injury Skin: Denies rash, lesions, or wounds, denies changes to skin color Neuro: Denies nubmness in extremities, h/a, s/s of stroke Bobo: Denies easy bruiding/bleeding Medications/Allergies Home Medications ?Medication ?Instructions ?Recorded ?Confirmed ?Last Taken ?Type amlodipine 5 mg tablet 5 mg PO DAILY 06/07/2406/0706/07/24 History flaxseed oil 1,000 mg capsule 1,000 mg PO DAILY 06/07/24 06/07/24 History glimepiride 4 mg tablet 4 mg PO DAILY 06/07/2406/0706/07/24 History levothyroxine 25 mcg tablet 25 mcg PO QAM 06/07/2401/2106/07/24 History lisinopril 40 mg tablet 40 mg PO DAILY 06/07/2405/2806/07/24 History metformin 500 mg tablet,extended 2,000 mg PO DAILY 01/2106/07/24 06/07/24 History release 24 hr metoprolol succinate 25 mg 25 mg PO DAILY 06/07/2401/2106/07/24 History tablet,extended release 24 hr tdoffwqc-jcz-bwbin acid 200 1 tab PO DAILY 06/07/2406/07/24 History mcg-vit K1 60 mcg-lycopene 600 mcg tablet (Men's Multivitamin) Allergies Allergy/AdvReac Type Severity Reaction Status Date / Time meprobamate (From Equanil) Allergy Intermediate ADR-Confusi Verified 06/07/24 10:06 on Current Medications Generic Name Dose Route Start Last Admin Trade Name Freq PRN Reason Stop Dose Admin Amlodipine Besylate 10 mg 06/10/24 09:00 06/10/24 09:45 Amlodipine 5 Mg Tablet PO 10 mg DAILY CASPER Administration Aspirin 81 mg 06/08/24 09:00 06/10/24 09:46 Aspirin 81 Mg Ec Tablet PO 81 mg DAILY CASPER Administration Atorvastatin Calcium 80 mg 06/07/24 21:00 06/09/24 21:34 Atorvastatin 40 Mg Tablet PO 80 mg BEDTIME CASPER Administration Clopidogrel Bisulfate 75 mg 06/08/24 09:00 06/10/24 09:46 Clopidogrel 75 Mg Tablet PO 75 mg DAILY CASPER Administration Heparin Sodium (Porcine) 5,000 unit 06/08/24 06:00 06/10/24 05:57 Heparin 5,000 Unit/Ml Inj 1 Ml SUBCUT 5,000 unit Q12H CASPER Administration Levothyroxine Sodium 25 mcg 06/08/24 06:00 06/10/24 05:57 Levothyroxine 25 Mcg Tablet PO 25 mcg QAM CASPER Administration Lisinopril 10 mg 06/09/24 13:00 06/10/24 09:46 Lisinopril 10 Mg Tablet PO 10 mg DAILY CASPER Administration Pantoprazole Sodium 40 mg 06/08/24 09:00 06/10/24 09:[address] 40 Mg Tablet PO 40 mg DAILY CASPER Administration PFSH Acute 2 PFSH: Social History (Reviewed 06/07/24 @ 10:10 by RENETTA Chairez Smoking and tobacco/nicotine status: never used tobacco/nicotine Vitals/I&O/Wt Last Vital Signs Temp 97.5 F L 06/10/24 11:25 Pulse 72 06/10/24 11:25 Resp 23 H 06/10/24 11:25 BP 168/86 06/10/24 11:25 Pulse Ox 97 06/10/24 11:25 O2 Del Method Room Air 06/10/24 11:25 06/09/24 06/10/24 06/10/24 22:59 06:59 14:59 Intake Total 240 / 840 200 / 1040 240 / 240 Balance 240 / 840 200 / 1040 240 / 240 Weight last 48 hrs Weight 148 lb Weight 148 lb 11.2 oz Physical Exam 2 Narrative: General: No apparent distress, healthy appearing, well nourished HENMT: normoceophalic Neck: No carotid bruit bilaterally Muskuloskeletal: Full ROM Lymphatic: no lymphedema noted Respiratory: Normal respiratory effort, clear to auscultation bilaterally throughout all lung orozco, no use of accessory muscles Cardio: No JVD, regular rate, regular rhythm, S1 S2 normal, no murmurs, peripheral pulses 2+ radial palpated bilaterally, 2+ PT and DP palpated bilaterally Extremities: Full ROM, normal, normal capillary refill, no cyanosis or edema Neuro: Alert and oriented x4, no focal motor deficits Psych: Affect normal, denies suicidal ideation, mental status grossly normal Skin: No rashes or lesions noted, no wounds Data 06/10/24 01:50 06/10/24 01:50 A&P Assessment and plan (1) Hypertension: Qualifiers: Hypertension type: primary hypertension Qualified Code(s): I10 - Essential (primary) hypertension (2) Abnormal stress test: (3) Dyspnea on exertion: (4) TIA (transient ischemic attack): Plan At this time patient is stable. Due to abnormal stress test would recommend left heart cath possible PCI. We plan on doing this tomorrow at 7 AM. Patient was educated on the risks and benefits of this including but not limited to stroke, heart attack, bleeding, anesthetic complications, contrast induced nephropathy, and infection and agrees to proceed. Would recommend event monitor on discharge to rule out arrhythmias such as afib that could have caused the TIA. Patient agrees to this as well. Will go ahead and get limited echo with bubble study to rule out shunting caused by PFO. Thank you, Dr. Hazel, for allowing us to care for this very pleasant 83 year old gentleman. PDMP PDMP Reviewed: Not Reviewed Coding Level of Care Code Acute Code for Chg Fwd Diagnoses Primary hypertension I10 Hypertension type: primary hypertension Abnormal stress test R94.39 Dyspnea on exertion R06.09 TIA (transient ischemic attack) G45.9
--- NOTE | 2024-06-10 14:06 | USCV_ITS ---
Lewis Downey Age: 83 Gender: M : 1940 Exam Date: 06/10/2024 21:09 Ordering Phys: Romy Jimenez NP Technologist: PENNY Exam Location: [facility] [place] Indication: cryptogenic stroke / TIA BP: 128 / 82 HR: 79 Rhythm: Sinus Technical Quality: Adequate MEASUREMENTS (Male / Female) Normal Values FINDINGS Left Ventricle Normal left ventricular size, systolic function and wall thickness, with no regional wall motion abnormalities. Left ventricular ejection fraction is estimated at 55 %. Right Ventricle Right Atrium Left Atrium Mitral Valve Aortic Valve Tricuspid Valve Pulmonic Valve Pericardium Aorta IVC CONCLUSIONS Limited echo to asses presence of PFO with bubble study Normal left ventricular size, systolic function and wall thickness, with no regional wall motion abnormalities. Left ventricular ejection fraction is estimated at 55 %. Bubble study was negative, there is no PFO or intracardiac shunt noted. Mitch Brown MD (Electronically Signed) Final Date: 12 June 2024 09:07 S
--- NOTE | 2024-06-10 18:06 | P.PN_ITS ---
Subjective 2 Subjective: Patient underwent stress test this morning which was reported as abnormal. He denies any current chest pain at this time. Medications: Reviewed: Yes Vitals/I&O/Wt Last Vital Signs Temp 98.3 F 06/10/24 16:07 Pulse 79 06/10/24 16:07 Resp 17 06/10/24 16:07 BP 128/82 06/10/24 16:07 Pulse Ox 95 06/10/24 16:07 O2 Del Method Room Air 06/10/24 16:07 06/10/24 06/10/24 06/10/24 06:59 14:59 22:59 Intake Total 200 / 1040 240 / 240 240 / 480 Balance 200 / 1040 240 / 240 240 / 480 Weight last 48 hrs Weight 67.132 kg Weight 67.449 kg Physical Exam 2 Narrative: General: No acute distress, AO x3 HEENT: PERRLA, pupils bilaterally equal and reactive, pallors not present Chest: Normal vesicular breath sounds, no added sounds, equal good air entry bilaterally CVS: S1-S2 regular, no murmurs, no tachycardia, no gallops, no rubs Abdomen: Soft, nontender, no organomegaly, bowel sounds present Neuro: No focal deficits, no facial deformity, AO x3, power 5/5 in all limbs Data 06/10/24 01:50 06/10/24 01:50 Other data: IMPRESSIONS This study shows medium size area of moderate ischemia in the inferior wall of the left ventricle. EKG segment will be documented separately. A&P Assessment and plan (1) Ataxia: (2) Dizziness: (3) Lightheadedness: (4) Arrhythmia: (5) Hypertension: Qualifiers: Hypertension type: primary hypertension Qualified Code(s): I10 - Essential (primary) hypertension (6) Diabetes mellitus: (7) Dyspnea on exertion: Plan # Lightheadedness dizziness, dyspnea on exertion., Possible arrhythmia? #Ataxia, lightheadedness dizziness #Hypertension #Diabetes mellitus #History of remote CO. #Questionable arrhythmia on telemetry ? CT and CTA head is negative for stroke. ? Check MRI brain without contrast. Will rule out partial circulation stroke ? Possibly orthostatic hypotension? ? Seems to have symptoms with position change however has a poor historian. ? At 1 point complained of chest pain that he usually has however he states it only happened when he exerted himself. It was more like a tightness in his chest. ? Check troponins EKG ? Placed on telemetry, will monitor for arrhythmias ? Check hemoglobin A1c, lipid profile, TSH ? PT OT ? Speech therapy ? Blood pressure elevated 165/107. Symptoms started few days ago. ? Continue amlodipine 5 daily. ? Hold lisinopril. ? Hold, provide ? Low-dose intensity sliding scale insulin ? Will hold beta-steven. Full code DVT prophylaxis: Heparin SQ twice daily 06/08/2024 CT head negative, CTA head and neck negative Head MRI negative for stroke or ischemia does show chronic microvascular changes Patient is still symptomatic with his original complaint of dyspnea on exertion and dizziness upon exertion. Orthostatic vitals are negative. Question of underlying arrhythmia? Telemetry reviewed. Patient does have periods of bradycardia down to 48-49 however have not noted a value lower than that so far. ? Had an episode of chest pain overnight which was reproducible to palpation most likely musculoskeletal in origin however given patient's symptoms cardiac etiology cannot be ruled out. Baseline troponin 19, 15.47, 16.10. ? Continue to monitor in hospital on telemetry at this time ? Order stress testing for Monday. Patient agreeable. ? I will continue on aspirin Plavix atorvastatin until stress testing. ? Continue to hold beta-steven. Patient was on Toprol 25 daily. ? Will consider cardiology consult going forward. ? Stop IV fluids. ?Continue amlodipine 5 daily. ? Hold lisinopril from home. 06/09/2024 Plan for cardiac stress test in AM. Continue to monitor on telemetry Continue aspirin Plavix atorvastatin until stress test. Continue to hold beta- steven at this time. Continue amlodipine 10 mg daily. Placed on lisinopril 10 mg daily. N.p.o. deana. June 10, 2024 Patient underwent stress test this morning which showed a medium sized area of moderate ischemia in the inferior wall of the left ventricle. Echocardiogram showed an LVEF of 64% with moderate concentric LVH. Grade 1 diastolic dysfunction. Thickened aortic valve.Will urine culture remains pending. Given abnormal stress test cardiology service was consulted today, patient is planned for an angiogram tomorrow morning. Currently no focal neurological deficits are encountered. Potentially may have had a TIA upon admission. MRI being normal is reassuring for no stroke. PDMP PDMP Reviewed: Not Reviewed Attestations 2 Medical Necessity Statement*: Plan angiogram tomorrow Coding Level of Care Code Acute Code for Chg Fwd Diagnoses Ataxia R27.0 Dizziness R42 Lightheadedness R42 Arrhythmia I49.9 Primary hypertension I10 Hypertension type: primary hypertension Diabetes mellitus E11.9 Dyspnea on exertion R06.09
[2024-06-10] MEDS: atorvastatin 40 mg Tablet 80 MG PO (21:38)
--- NOTE | 2024-06-10 22:19 | PC.NURSE ---
Pts Jyotsna was called to give update on transfer of pt to [facility].
[2024-06-11] VITALS (10 sets, daily range): BP systolic 137–162; BP diastolic 83–95; PULSE 71–82; RESP 9–20; TEMP 36.4–36.7; O2SAT 92–98
[2024-06-11 04:45] LABS: Basophils % 0.6 %; Eosinophils # 0.1 10^3/uL (0.0-0.8); Eosinophils % 1.5 %; Hematocrit 36.9 % (37-53); Lymphocytes # 1.7 10^3/uL (0.8-4.8); Lymphocytes % 31.7 %; Mean Corpuscular HGB Conc 34.4 g/dL (30-55); Mean Corpuscular Hemoglobin 32.5 pg (27-33); Mean Corpuscular Volume 94.4 fl (82-101); Mean Platelet Volume 9.1 fL (7.4-10.4); Monocytes # 0.6 10^3/uL (0.2-0.9); Monocytes % 10.8 %; Neutrophils # 2.97 10^3/uL (1.8-7.7); Neutrophils % 55.2 %; Nucleated Red Blood Cells % 0 %; Platelet Count 156 10^3/cmm (157-399); Red Blood Count 3.91 10^6/uL (3.85-5.65); Red Cell Distribution Width 13.1 % (12.1-15.1); White Blood Count 5.37 10^3/uL (3.29-11.43)
[2024-06-11 05:05] LABS: Anion Gap 15.1 (5-19); Blood Urea Nitrogen 15 mg/dL (8-23); Calcium 8.7 mg/dL (8.5-10.5); Carbon Dioxide 22 mmol/L (22-29); Chloride 106 mmol/L (98-107); Creatinine Clr Calc Pharmacy 52.9584; Glucose 153 mg/dL (65-115); Osmolality Calculated 292 mOsm/kg (285-295); Potassium 4.1 mmol/L (3.5-5.1); Sodium 139 mmol/L (136-145)
[2024-06-11] MEDS: levothyroxine 25 mcg Tablet PO (05:35)
[2024-06-11] MEDS: diphenhydrAMINE 50 mg Capsule PO (05:35)
[2024-06-11] MEDS: sodium chloride 0.9% 1,000 ML 50 ML IV (05:36)
[2024-06-11 06:12] LABS: Glucose Point of Care 134 mg/dL (70-110)
--- NOTE | 2024-06-11 06:18 | XACV_ITS ---
Exam Room: 2 Ht: 173 cm Wt: 64 kg BSA: 1.76 m2 Gender: Male : 1940 Any Known Allergies: Other Exam Priority: Routine Procedure(s): Procedure Description: Diagnostic procedure Procedure Description: Left Heart Catheterization Procedure Description: Left ventriculography Procedure Description: Coronary Angiography Stephanie DE LA FUENTE; Diagnostic Cath Status: Elective Diagnostic Findings * Left Main has no disease. * Circumflex has no disease. * Mid Left Anterior Descending to Distal Left Anterior Descending: obstructive 70% stenosis, EVIE: 3 flow. * Distal Left Anterior Descending: subtotal occlusion, EVIE: 3 flow. * Proximal Right Coronary Artery: minimal 30% stenosis, EVIE: 3 flow. * Distal Right Coronary Artery: minimal 30% stenosis, EVIE: 3 flow. * 1st Diagonal: severe 90% stenosis, EVIE: 3 flow. * Coronary angiography shows right dominance. Conclusions 1. There is subtotal occlusion coronary artery disease with two vessel disease. 2. All gimenez are normal. 3. Hyperdynamic left ventricular systolic function. Ejection fraction of 70%. Recommendations * Continue current medical management and risk factor modification. Diagnostic RX Recommendation: medical therapy and/or counseling Ventriculography Ejection Fraction: 70.0 % Pressures Phase:Rest AO : 104 / 73 ( 89 ) @ 8:55:00 AM 137 / 74 ( 101 ) @ 9:02:00 AM 137 / 64 ( 99 ) @ 9:02:00 AM LV : 138 / -4 / 7 @ 9:01:00 AM 140 / -5 / 9 @ 9:02:00 AM 141 / -5 / 9 @ 9:02:00 AM Valves Phase:DefaultPhase AV : 4.0 @ 8:07:46 AM AV Mean Gradient: 17.0 @ 8:07:46 AM Clinical Evaluation EBL: 5mL-10mL Procedural Details Current Diagnosis : Chest Pain. Pre-Procedure Time Out. Identified patient by full name and date of as verbalized by the patient/guarantor. Does the consent match the physician's order: Yes. Accurate & Complete Informed Consent: Yes. Inpatient/Outpatient History & Physical on Chart: Yes. If H&P is completed, is and addenduem needed: No; If yes, is the addendum complete: N/A. Visualize and Verify Site with Patient/Guarantor: N/A. Relevant Radiology Images available: Yes. Pre-op teaching completed and patient verbalized understanding. The risks, benefits, and alternatives of sedation and/or procedure were discussed by physician. The patient agrees to continue. Procedure started. [facility] Clinical Fraility Score: 3: Managing Well. Rug [employer]ter [place] Indications: Worsening Angina. Chest Pain Symptom Assessment: Typical Angina Symptoms. Correct patient, site and procedure confirmed by cath team. Current diagnosis: Chest Pain. PERRLA. Strong, equal hand sales broker bilaterally. Lungs clear x 5 lobes. A 20 gauge IV was started in the left anticubital using aseptic technique. IV Fluids: 0.9% NaCl at KVO. 0 mL infused prior to candlemaking laborer. Oxygen started at 2liters/min via nasal canula. right groin was prepped with chloroprep then draped in the usual sterile fashion. right radial was prepped with chloroprep then draped in the usual sterile fashion. Baseline sample Acquired. HR: 0 BPM. Physician arrived. Physician scrubbed in. Immediate Pre-Procedure Time Out. Correct Patient: Yes; Correct Procedure: Yes; Correct Site: Yes; Correct Patient Position: Yes; Correct Supplies: Yes; Dried Flammable Prep: Yes; Blood Products Available: N/A;. Lidocaine 1% infiltrated to the right radial. Arterial access obtained. A 5 russian TIG catheter in over wire. Multiple views taken of left coronary artery. Catheter redirected to the RCA. Catheter removed over the exchange wire. A 5 russian Angled Pig catheter in over wire. EDP Sample taken: LV 138/-5,7; HR: 83 BPM; SpO2: 97%. LV gram performed in PE[place]AL[place] @ 10 mL/second for a total of 30 mL. EDP Sample taken: LV 140/-6,9; HR: 69 BPM; SpO2: 97%. Pullback taken: LV 141/-6,9; AO 137/74(101); Mean: 17mmHg, Peak to Peak: 4mmHg, SEP: 7sec/min; HR: 79 BPM; SpO2: 97%. Catheter removed over the exchange wire. A TR Band was successful obtaining hemostatsis at the Right Radial artery insertion site. Vital chart was stopped. Post Procedure: Pulses reassessed and unchanged. PERRLA. Strong, equal hand sales broker bilaterally. No VTE prophylaxis required. Medication's Wasted: Lidocaine 1% = 18 mL. Medication's Wasted: Nitro = 49.8 mcg. Medication's Wasted: Heparin = 1000 units. Medication's Wasted: Other = Fentanyl 50 mcg Versed 1 mg. Total IV fluids: 30 mL. Post-op diagnosis: CAD. Complications: None. Estimated blood loss: 5mL-10mL. Responsiveness - Normal response to verbal stimuli; alert and oriented, PERRLA. Airway - Unaffected, no intervention required; spontaneous ventilation. Circulation: W/N/L, pulses unchanged. Nausea/Vomiting: No. Procedure completed. Patient transferred by bed to 1st floor. Access Site Site: Right Radial artery Sheath Size: 6 Fr Hemostasis Method: TR Band Hemostasis Success: Successful Procedure Medications Start: 7:40 AM Stop: 7:40 AM Medication: Fentanyl Amount: 50 mcg Route: I.V. Start: 7:40 AM Stop: 7:40 AM Medication: Versed Amount: 1 mg Route: I.V. Start: 7:50 AM Stop: 7:50 AM Medication: Nitrogylcerin Amount: 200 mcg Route: I.A. Start: 7:52 AM Stop: 7:52 AM Medication: Heparin Amount: 5000 units Route: I.V. I, the attending physician, have reviewed and verified all procedure medications. Yes, all medications given per verbal order History/Risk Factors Hypertension: Yes Dyslipidemia: Yes Peripheral Arterial Disease (PAD): No Myocardial Infarction (OK): Yes Obesity: No Renal Disease: No Prior Interventions PCI: No CABG: No Valve Surgery: No Report Signatures Finalized by Mitch Brown MD on 06/11/2024 08:36 AM
--- NOTE | 2024-06-11 07:42 | W.PM.OPSUD ---
Surgery/Procedure H&P Update DATE OF PROCEDURE: June 11, 2024 DATE H&P PERFORMED: 06/10/24 H&P UPDATE INFORMATION: I have reviewed H&P completed within last 30 days, I have examined patient prior to procedure, No changes to prior documentation and Changes to prior documentation as noted here PREOP DIAGNOSIS: Angina equivalent/abnormal stress PATIENT REASSESSED PRIOR TO SEDATION, WITH NO CHANGE NOTED: Yes PHYSICAL EXAM: alert, oriented x 3, clear to auscultation bilaterally, regular rate & rhythm and operative site marked AIRWAY EVAL/ANESTHESIA PLAN: ASA II, Risks, benefits & alternatives of sedation and/or procedure discussed and Patient agrees to continue as planned ADDITIONAL INFORMATION: All risk-benefit and alternative for the procedure has been explained to the patient. Patient understand 2% risk of stroke major bleed, patient understand 5% risk of contrast-induced nephropathy urgent emergent vascular CT surgery hematoma pseudoaneurysm and bruising. Patient would like to proceed with it.
--- NOTE | 2024-06-11 08:14 | P.PN_ITS ---
Subjective 2 Subjective: Patient underwent left heart cath today. He was noted to have subtotally occluded mid torturous LAD and high-grade long proximal diagonal branch stenosis. Left main, left circumflex and RCA has luminal irregularity without significant stenosis. Left ventricular ejection fraction was hyperdynamic 70% while left ventricular end-diastolic pressure was 9 at 7 mmHg. Medications: Reviewed: Yes Vitals/I&O/Wt Last Vital Signs Temp 97.7 F 06/11/24 07:17 Pulse 80 06/11/24 07:17 Resp 18 06/11/24 07:17 BP 161/90 06/11/24 07:17 Pulse Ox 96 06/11/24 07:17 O2 Del Method Room Air 06/11/24 07:17 06/10/24 06/11/24 06/11/24 22:59 06:59 14:59 Intake Total 240 / 480 Balance 240 / 480 Weight last 48 hrs Weight 142 lb 8 oz Weight 148 lb Physical Exam 2 Const: COMMON NORMALS: alert Chest: OTHER: GENERAL: Patient is alert, awake and oriented x3. HEART: Regular S1 and S2. No murmur, rub or gallop. LUNGS: Clear to auscultate bilaterally. CENTRAL NERVOUS SYSTEM: Grossly nonfocal. EXTREMITIES: Lower extremities with out edema bilaterally. Resp: COMMON NORMALS: clear to auscultation bilaterally AUSCULTATION: clear to auscultation bilaterally Neuro: SENSORIUM/ORIENTATION: Yes alert Data 06/11/24 04:30 06/11/24 04:30 A&P Assessment and plan (1) Hypertension: Qualifiers: Hypertension type: primary hypertension Qualified Code(s): I10 - Essential (primary) hypertension (2) Abnormal stress test: (3) Dyspnea on exertion: (4) TIA (transient ischemic attack): Plan As above patient underwent left heart catheterization noted to have subtotally occluded mid LAD and high-grade proximal diagonal branch, given the anatomy of both vessels patient may need CABG however since both vessels are already had good flow at the same time he had a good left ventricular ejection fraction he is not symptomatic and may not be a good surgical candidate therefore we will manage the patient medically. Will start patient on metoprolol 12.5 mg succinate once a day Continue aspirin statin and Plavix if okay with neurology Add isosorbide mononitrate 30 mg once a day if permissible by blood pressure PDMP PDMP Reviewed: Not Reviewed Attestations 2 Medical Necessity Statement*: As per medicine Coding Level of Care Code Acute Code for Chg Fwd Diagnoses Primary hypertension I10 Hypertension type: primary hypertension Abnormal stress test R94.39 Dyspnea on exertion R06.09 TIA (transient ischemic attack) G45.9
--- NOTE | 2024-06-11 08:27 | PC.NURSE ---
patient recieved back on floor at 0815. Ange Montejo RN at bedside. Hematoma noted below TR band on right wrist. Second TR band applied below first with 19ml of air instilled. Swelling circled on wrist and nurse will monitor for increased swelling. Patient vitals within normal limits.
[2024-06-11] MEDS: clopidogrel 75 mg Tablet PO (08:32)
[2024-06-11] MEDS: sodium chloride 0.9% 1,000 ML 100 ML IV (08:32)
[2024-06-11] MEDS: amlodipine 5 mg Tablet 10 MG PO (08:32)
[2024-06-11] MEDS: pantoprazole DR 40 mg Tablet PO (08:32)
[2024-06-11] MEDS: aspirin 81 mg EC Tablet PO (08:32)
[2024-06-11] MEDS: lisinopril 10 mg Tablet PO (08:32)
[2024-06-11 11:33] LABS: Glucose Point of Care 215 mg/dL (70-110)
--- NOTE | 2024-06-11 15:45 | P.PN_ITS ---
Subjective 2 Subjective: Status post coronary angiogram today. Denies any chest pain. Medications: Reviewed: Yes Vitals/I&O/Wt Last Vital Signs Temp 97.7 F 06/11/24 07:17 Pulse 76 06/11/24 11:28 Resp 13 06/11/24 11:28 BP 137/83 06/11/24 11:28 Pulse Ox 97 06/11/24 11:28 O2 Del Method Room Air 06/11/24 11:28 Weight last 48 hrs Weight 64.637 kg Weight 67.132 kg Physical Exam 2 Narrative: General: No acute distress, AO x3 HEENT: PERRLA, pupils bilaterally equal and reactive, pallors not present Chest: Normal vesicular breath sounds, no added sounds, equal good air entry bilaterally CVS: S1-S2 regular, no murmurs, no tachycardia, no gallops, no rubs Abdomen: Soft, nontender, no organomegaly, bowel sounds present Neuro: No focal deficits, no facial deformity, AO x3, power 5/5 in all limbs Data 06/11/24 04:30 06/11/24 04:30 A&P Assessment and plan (1) Ataxia: (2) Dizziness: (3) Lightheadedness: (4) Arrhythmia: (5) Hypertension: Qualifiers: Hypertension type: primary hypertension Qualified Code(s): I10 - Essential (primary) hypertension (6) Diabetes mellitus: (7) Dyspnea on exertion: Plan # Lightheadedness dizziness, dyspnea on exertion., Possible arrhythmia? #Ataxia, lightheadedness dizziness #Hypertension #Diabetes mellitus #History of remote CA. #Questionable arrhythmia on telemetry ? CT and CTA head is negative for stroke. ? Check MRI brain without contrast. Will rule out partial circulation stroke ? Possibly orthostatic hypotension? ? Seems to have symptoms with position change however has a poor historian. ? At 1 point complained of chest pain that he usually has however he states it only happened when he exerted himself. It was more like a tightness in his chest. ? Check troponins EKG ? Placed on telemetry, will monitor for arrhythmias ? Check hemoglobin A1c, lipid profile, TSH ? PT OT ? Speech therapy ? Blood pressure elevated 165/107. Symptoms started few days ago. ? Continue amlodipine 5 daily. ? Hold lisinopril. ? Hold, provide ? Low-dose intensity sliding scale insulin ? Will hold beta-setven. Full code DVT prophylaxis: Heparin SQ twice daily 06/08/2024 CT head negative, CTA head and neck negative Head MRI negative for stroke or ischemia does show chronic microvascular changes Patient is still symptomatic with his original complaint of dyspnea on exertion and dizziness upon exertion. Orthostatic vitals are negative. Question of underlying arrhythmia? Telemetry reviewed. Patient does have periods of bradycardia down to 48-49 however have not noted a value lower than that so far. ? Had an episode of chest pain overnight which was reproducible to palpation most likely musculoskeletal in origin however given patient's symptoms cardiac etiology cannot be ruled out. Baseline troponin 19, 15.47, 16.10. ? Continue to monitor in hospital on telemetry at this time ? Order stress testing for Monday morning. Patient agreeable. ? I will continue on aspirin Plavix atorvastatin until stress testing. ? Continue to hold beta-steven. Patient was on Toprol 25 daily. ? Will consider cardiology consult going forward. ? Stop IV fluids. ?Continue amlodipine 5 daily. ? Hold lisinopril from home. 06/09/2024 Plan for cardiac stress test in AM. Continue to monitor on telemetry Continue aspirin Plavix atorvastatin until stress test. Continue to hold beta- steven at this time. Continue amlodipine 10 mg daily. Placed on lisinopril 10 mg daily. N.p.o. tonight. June 10, 2024 Patient underwent stress test this morning which showed a medium sized area of moderate ischemia in the inferior wall of the left ventricle. Echocardiogram showed an LVEF of 64% with moderate concentric LVH. Grade 1 diastolic dysfunction. Thickened aortic valve.Will urine culture remains pending. Given abnormal stress test cardiology service was consulted today, patient is planned for an angiogram tomorrow morning. Currently no focal neurological deficits are encountered. Potentially may have had a TIA upon admission. MRI being normal is reassuring for no stroke. June 11, 2024 Status post coronary angiogram today. 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 Mid LAD to distal LAD obstructive 70% stenosis. First diagonal severe 90% stenosis. Hyperdynamic left ventricle with 70% EF. Recommended medical management. Will optimize medications with aspirin 81 mg p.o. daily, Lipitor 80 mg p.o. daily, discontinue Plavix. Continue lisinopril 20 mg p.o. daily. Add beta-blockers and nitrates. PDMP PDMP Reviewed: Not Reviewed Attestations 2 Medical Necessity Statement*: Optimization of medical therapy for coronary artery disease Coding Level of Care Code Acute Code for Chg Fwd Diagnoses Ataxia R27.0 Dizziness R42 Lightheadedness R42 Arrhythmia I49.9 Primary hypertension I10 Hypertension type: primary hypertension Diabetes mellitus E11.9 Dyspnea on exertion R06.09
[2024-06-11 16:10] LABS: Glucose Point of Care 252 mg/dL (70-110)
[2024-06-11] MEDS: heparin 5,000 unit/mL INJ 1 mL 5000 UNIT SUBCUT (17:25)
[2024-06-11 20:27] LABS: Glucose Point of Care 238 mg/dL (70-110)
[2024-06-11] MEDS: insulin lispro 100 unit/1 mL SUBCUT (21:27)
[2024-06-11] MEDS: atorvastatin 40 mg Tablet 80 MG PO (21:27)
[2024-06-11] MEDS: metoprolol tartrate 25 mg Tablet PO (21:27)
[2024-06-12] VITALS: BP 117/69; PULSE 70; RESP 17; TEMP 36.3; O2SAT 95
[2024-06-12 04:00] VITALS: BP 118/68; PULSE 78; RESP 20; O2SAT 97
[2024-06-12] MEDS: heparin 5,000 unit/mL INJ 1 mL 5000 UNIT SUBCUT (05:04)
[2024-06-12] MEDS: levothyroxine 25 mcg Tablet PO (05:05)
[2024-06-12 05:45] VITALS: PULSE 71
[2024-06-12 05:58] LABS: Basophils % 0.4 %; Eosinophils # 0.1 10^3/uL (0.0-0.8); Eosinophils % 1.2 %; Hematocrit 37.5 % (37-53); Lymphocytes # 1.6 10^3/uL (0.8-4.8); Lymphocytes % 21.9 %; Mean Corpuscular HGB Conc 33.6 g/dL (30-55); Mean Corpuscular Hemoglobin 31.9 pg (27-33); Mean Corpuscular Volume 94.9 fl (82-101); Mean Platelet Volume 9.5 fL (7.4-10.4); Monocytes # 0.8 10^3/uL (0.2-0.9); Monocytes % 10.6 %; Neutrophils # 4.75 10^3/uL (1.8-7.7); Neutrophils % 65.5 %; Nucleated Red Blood Cells % 0 %; Platelet Count 171 10^3/cmm (157-399); Red Blood Count 3.95 10^6/uL (3.85-5.65); Red Cell Distribution Width 13.2 % (12.1-15.1); White Blood Count 7.26 10^3/uL (3.29-11.43)
[2024-06-12 06:06] LABS: Glucose Point of Care 114 mg/dL (70-110)
[2024-06-12 06:14] LABS: Anion Gap 14.3 (5-19); Blood Urea Nitrogen 15 mg/dL (8-23); Calcium 8.7 mg/dL (8.5-10.5); Carbon Dioxide 23 mmol/L (22-29); Chloride 108 mmol/L (98-107); Creatinine Clr Calc Pharmacy 53.5186; Glucose 114 mg/dL (65-115); Osmolality Calculated 294 mOsm/kg (285-295); Potassium 4.3 mmol/L (3.5-5.1); Sodium 141 mmol/L (136-145)
[2024-06-12 06:19] LABS: Free T4 Free Thyroxine 1.13 ng/dL (0.82-1.77); T3 Free 2.5 PG/ML (2.0-4.4)
[2024-06-12 07:20] VITALS: BP 150/82; PULSE 75; RESP 17; TEMP 36.7; O2SAT 94
[2024-06-12] MEDS: lisinopril 10 mg Tablet 20 MG PO (08:16)
[2024-06-12] MEDS: isosorbide mononitrate ER 30 mg Tablet PO (08:18)
[2024-06-12] MEDS: aspirin 81 mg EC Tablet PO (08:18)
[2024-06-12] MEDS: pantoprazole DR 40 mg Tablet PO (08:18)
[2024-06-12] MEDS: metoprolol tartrate 25 mg Tablet PO (08:18)
[2024-06-12 09:57] VITALS: BP 135/78; PULSE 80; RESP 17; TEMP 36.8; O2SAT 94
--- NOTE | 2024-06-12 11:37 | P.PN_ITS ---
<Statement entered by Roosevelt Oh M.D - 06/12/24 22:46> Patient was cared for in conjunction with an advanced practice practitioner. I reviewed the chart and all pertinent data including imaging, telemetry, and laboratory results. I discussed the patient in detail with the advanced practice practitioner. Please see their note for complete progress note, results and agreed upon plan of care for the patient. Subjective 2 Subjective: Patient was seen today. He is doing well without complaints. Denies any chest pain or shortness of breath. Vitals/I&O/Wt Last Vital Signs Temp 98.3 F 06/12/24 09:57 Pulse 80 06/12/24 09:57 Resp 17 06/12/24 09:57 BP 135/78 06/12/24 09:57 Pulse Ox 94 06/12/24 09:57 O2 Del Method Room Air 06/12/24 07:20 06/11/24 06/12/24 06/12/24 22:59 06:59 14:59 Intake Total 100 / 100 1999 / 2099 360 / 360 Output Total 100 / 100 0 / 100 Balance 0 / 0 1999 / 1999 360 / 360 Weight last 48 hrs Weight 146 lb 6.4 oz Weight 142 lb 8 oz Physical Exam 2 Narrative: General: No apparent distress, healthy appearing, well nourished HENMT: normoceophalic Muskuloskeletal: Full ROM Lymphatic: no lymphedema noted Respiratory: Normal respiratory effort, clear to auscultation bilaterally throughout all lung orozco, no use of accessory muscles Cardio: No JVD, regular rate, regular rhythm, S1 S2 normal, no murmurs, peripheral pulses 2+ radial palpated bilaterally, 2+ PT and DP palpated bilaterally Extremities: Full ROM, normal, normal capillary refill, no cyanosis or edema Neuro: Alert and oriented x4, no focal motor deficits Psych: Affect normal, denies suicidal ideation, mental status grossly normal Skin: No rashes or lesions noted, no wounds Data 06/12/24 05:05 06/12/24 05:05 A&P Assessment and plan (1) Hypertension: Qualifiers: Hypertension type: primary hypertension Qualified Code(s): I10 - Essential (primary) hypertension (2) Abnormal stress test: (3) Dyspnea on exertion: (4) TIA (transient ischemic attack): Plan Patient has a severe lesion in the LAD. At this time after discussing with patient they would like a second opinion with a surgeon. Patient will be referred on an outpatient basis to Dr. Henry at [facility]. Films have been sent to him. Would recommend medical management until then with eri, beta steven, and high dose statin therapy. Continue isosorbide. We will f/u in the clinic in the next week or so. PDMP PDMP Reviewed: Not Reviewed Attestations 2 Medical Necessity Statement*: Deferred to primary. Coding Level of Care Code Acute Code for Chg Fwd Diagnoses Primary hypertension I10 Hypertension type: primary hypertension Abnormal stress test R94.39 Dyspnea on exertion R06.09 TIA (transient ischemic attack) G45.9
--- NOTE | 2024-06-12 13:50 | P.DS_ITS ---
Discharge Providers Date of Admission: 06/08/24 12:25 Date of Discharge: June 12, 2024 Attending Provider at Admission: Margie Curry MD Attending Provider at Discharge: Christiana Hazel MD Diagnoses at Discharge Discharge Diagnosis (1) Hypertension: Status: Acute Qualifiers: Hypertension type: primary hypertension Qualified Code(s): I10 - Essential (primary) hypertension (2) Abnormal stress test: Status: Acute (3) Dyspnea on exertion: Status: Acute (4) TIA (transient ischemic attack): Status: Acute Reason for Visit Reason for Visit: stroke like symptoms (yesterday) Hospital Course Hospital Course Lewis Downey is a 83 year old male with past medical history of hypertension, diabetes, who presented to the hospital with complaints of ataxia. He had trouble getting up from a sitting position felt lightheaded and dizzy therefore presented into the emergency room. MRI was obtained which was negative for acute stroke. He had also complained of increasing dyspnea on exertion in the past few weeks. A stress test was obtainedwhich showed a medium sized area of moderate ischemia in the inferior wall of the left ventricle. Echocardiogram showed an LVEF of 64% with moderate concentric LVH. Grade 1 diastolic dysfunction. Thickened aortic valve. With these abnormal findings he underwent a coronary angiogramFindings of subtotal occlusion coronary artery disease with two-vessel disease. Mid LAD to distal LAD obstructive 70% stenosis. First diagonal severe 90% stenosis. Cardiology service recommended medical management versus surgical option for two-vessel CABG. His medication regimen was optimized in the hospital to include aspirin 81 mg p.o. daily, atorvastatin 80 mg p.o. daily, lisinopril 40 mg p.o. daily and metoprolol 25 mg p.o. daily. Imdur was added additionally 30 mg p.o. daily. He continued his home medication of amlodipine 5 mg p.o. daily. His HbA1c was uncontrolled at 9.2, Jardiance was added to existing glimepiride and metformin. He was referred to endocrinology for uncontrolled diabetes and OHA management. His TSH was high at 7.19, however with normal T3 and T4. He is recommended to follow-up with cardiology as outpatient. Patient has been referred to see Dr. Hudson, cardiothoracic surgery at [facility] by cardiology service. Physical Exam Narrative: General: No acute distress, AO x3 HEENT: PERRLA, pupils bilaterally equal and reactive, pallors not present Chest: Normal vesicular breath sounds, no added sounds, equal good air entry bilaterally CVS: S1-S2 regular, no murmurs, no tachycardia, no gallops, no rubs Abdomen: Soft, nontender, no organomegaly, bowel sounds present Neuro: No focal deficits, no facial deformity, AO x3, power 5/5 in all limbs Discharge Data Studies Completed and Pending Completed Studies During Hospitalization Category Date Time Status CT angio headneck* [id number] Stat Cat Scan 06/07/24 11:[address] head thrombolytic [id number] Stat Cat Scan 06/07/24 11:21 Completed [employer] request for service Routine Exams 06/11/24 06:18 Completed Sestamibi Stress Test Request Routine Exams 06/09/24 12:59 Completed XR chest 1V portable [id number] Stat Exams 06/07/24 11:21 Completed MR head wo con* [id number] Urgent MRI 06/07/24 15:22 Completed NM geri perf SPECT r/s* [id number] Routine Nuc Med 06/10/24 12:59 Completed CV. echo complete* [id number] Routine Ultrasound 06/08/24 15:22 Completed CV. echo lmt wo/w bubble [id number] Routine Ultrasound 06/10/24 14:06 Completed Radiology Impressions Chest X-Ray 06/07/24 11:21 IMPRESSION: 1. No acute cardiopulmonary finding. Head CT 06/07/24 11:21 IMPRESSION: 1. No evidence of intracranial hemorrhage or mass effect. 2. Mild small vessel changes. Moderate parenchymal volume loss. 3. No acute intracranial findings. Notified Michael Almanza MD at 06/07/2024 11:51 AM. Head/Neck CTA 06/07/24 11:21 IMPRESSION: 1. Less than 50% cervical ICA stenosis bilaterally. 2. Mild atheromatous plaque at both carotid bulbs. 3. No evidence of flow-limiting intracranial stenosis. 4. Codominant and patent vertebral arteries bilaterally. Head MRI 06/07/24 15:22 IMPRESSION: No acute ischemia. Laboratory Results WBC 7.26 10^3/uL (3.29-11.43) 06/12/24 05:05 RBC 3.95 10^6/uL (3.85-5.65) 06/12/24 05:05 Hgb 12.60 g/dL (11.27-16.99) 06/12/24 05:05 Hct 37.5 % (37-53) 06/12/24 05:05 MCV 94.9 fl (82-101) 06/12/24 05:05 MCH 31.9 pg (27-33) 06/12/24 05:05 MCHC 33.6 g/dL (30-55) 06/12/24 05:05 RDW 13.2 % (12.1-15.1) 06/12/24 05:05 Plt Count 171 10^3/cmm (157-399) 06/12/24 05:05 MPV 9.5 fL (7.4-10.4) 06/12/24 05:05 Neut % (Auto) 65.5 % 06/12/24 05:05 Lymph % (Auto) 21.9 % 06/12/24 05:05 [place] % (Auto) 10.6 % 06/12/24 05:05 Eos % (Auto) 1.2 % 06/12/24 05:05 Baso % (Auto) 0.4 % 06/12/24 05:05 Neut # (Auto) 4.75 10^3/uL (1.8-7.7) 06/12/24 05:05 Lymph # (Auto) 1.6 10^3/uL (0.8-4.8) 06/12/24 05:05 [place] # (Auto) 0.8 10^3/uL (0.2-0.9) 06/12/24 05:05 Eos # (Auto) 0.1 10^3/uL (0.0-0.8) 06/12/24 05:05 Baso # (Auto) 0.0 10^3/uL (0.0-0.1) 06/12/24 05:05 Nucleated RBC % (auto) 0 % 06/12/24 05:05 Nucleated RBCs # 0.0 /100WBC 06/12/24 05:05 PT 13.60 SECONDS (12.1-14.9) 06/07/24 11:26 INR 0.97 (0.8-1.2) 06/07/24 11:26 APTT 26.5 SECONDS (23.9-36.7) 06/07/24 11:26 Sodium 141 mmol/L (136-145) 06/12/24 05:05 Potassium 4.3 mmol/L (3.5-5.1) 06/12/24 05:05 Chloride 108 mmol/L (98-107) H 06/12/24 05:05 Carbon Dioxide 23 mmol/L (22-29) 06/12/24 05:05 Anion Gap 14.3 (5-19) 06/12/24 05:05 BUN 15 mg/dL (8-23) 06/12/24 05:05 Creatinine 1.0 mg/dL (0.7-1.2) 06/12/24 05:05 GFR Calculation Not Reportable 06/12/24 05:05 Glucose 114 mg/dL (65-115) 06/12/24 05:05 POC Glucose 114 mg/dL (70-110) H 06/12/24 05:43 Estimat Average Glucose 220 06/07/24 11:26 Hemoglobin A1c 9.3 % (4.0-6.0) H 06/07/24 11:26 Calculated Osmolality 294 mOsm/kg (285-295) 06/12/24 05:05 Calcium 8.7 mg/dL (8.5-10.5) 06/12/24 05:05 Magnesium 1.8 mg/dL (1.7-2.3) 06/10/24 01:50 Total Bilirubin 0.4 mg/dL (0.15-1.2) 06/07/24 11:26 AST 20 U/L (0-40) 06/07/24 11:26 ALT 12 U/L (0-41) 06/07/24 11:26 Alkaline Phosphatase 53 U/L (40-130) 06/07/24 11:26 Troponin T Baseline 19 ng/L (0-15) H 06/07/24 17:19 Troponin T 120 Minute 15.47 ng/L (0-15) H 06/07/24 19:04 Delta Troponin T -3.53 ABS# (0-10) L 06/07/24 19:04 Troponin T Hi Sens 6Hr 16.10 ng/L (0-15) H 06/07/24 23:09 Troponin T Hi Sens 6Hr Delta -2.90 ng/L (0-12) L 06/07/24 23:09 Total Protein 7.3 g/dL (6.6-8.7) 06/07/24 11: Albumin 4.3 g/dL (3.5-5.2) 06/07/24 11: Globulin 3.0 g/dL (1.3-4.6) 06/07/24 11:26 Triglycerides 174 mg/dL (0-150) H 06/07/24 11:26 Cholesterol 184 mg/dL (0-200) 06/07/24 11: LDL Cholesterol, Calc 109 mg/dL (50-129) 06/07/24 11: Total VLDL Cholesterol 35 mg/dL (0-30) H 06/07/24 11: HDL Cholesterol 40 mg/dL (60-100) L 06/07/24 11: Cholesterol/HDL Ratio 4.60 mg/dL (1.0-5.00) 06/07/24 11: Vitamin B12 656 pg/mL (232-1245) 06/07/24 11: TSH 7.19 uIU/mL (0.27-4.20) H 06/07/24 11: Free T4 1.13 ng/dL (0.82-1.77) 06/12/24 05:05 Free T3 2.5 PG/ML (2.0-4.4) 06/12/24 05:05 Urine Color Yellow (Yellow) 06/07/24 12:18 Urine Appearance Clear (CLEAR) 06/07/24 12:18 Urine pH 6 (5-7) 06/07/24 12:18 Ur Specific Mobile 1.015 (1.005-1.030) 06/07/24 12:18 Urine Protein Neg (Negative) 06/07/24 12:18 Urine Glucose (UA) 4+ (Normal) H 06/07/24 12:18 Urine Ketones Negative (Negative) 06/07/24 12:18 Urine Blood Neg (Negative) 06/07/24 12:18 Urine Nitrate Negative (Negative) 06/07/24 12:18 Urine Bilirubin Neg (Negative) 06/07/24 12:18 Urine Urobilinogen Norm mg/dL (Negative) 06/07/24 12:18 Ur Leukocyte Esterase Negative (Negative) 06/07/24 12:18 Urine RBC 0-2 /hpf (0-2) 06/07/24 12:18 Urine WBC 0-5 /hpf (0-5) 06/07/24 12:18 Ur Squamous Epith Cells 0-5 /hpf (0-5) 06/07/24 12:18 Amorphous Sediment Not Reportable 06/07/24 12:18 Urine Bacteria None seen /hpf (NONE) 06/07/24 12:18 Hyaline Casts 0-4 /lpf H 06/07/24 12:18 Urine Opiates Screen Negative ng/mL (Negative) 06/07/24 12:18 Ur Barbiturates Screen Negative ng/mL (Negative) 06/07/24 12:18 Ur Phencyclidine Scrn Negative ng/mL (Negative) 06/07/24 12:18 Ur Amphetamines Screen Negative ng/mL (Negative) 06/07/24 12:18 U Benzodiazepines Scrn Negative ng/mL (Negative) 06/07/24 12:18 Urine Cocaine Screen Negative ng/mL (Negative) 06/07/24 12:18 U Marijuana (THC) Screen Negative ng/mL (Negative) 06/07/24 12:18 Ethyl Alcohol < 10 mg/dL (0-10) 06/07/24 11:26 Vitals Last Vital Signs Temp 98.3 F 06/12/24 09:57 Pulse 80 06/12/24 09:57 Resp 17 06/12/24 09:57 BP 135/78 06/12/24 09:57 Pulse Ox 94 06/12/24 09:57 O2 Del Method Room Air 06/12/24 07:20 Discharge Plan Discharge Patient Disposition: Home Condition: Stable Prescriptions: New atorvastatin 40 mg Tablet 80 mg PO BEDTIME 30 Days Qty: 30 0RF isosorbide mononitrate 30 mg Tablet Extended Release 24 Hr 30 mg PO DAILY 30 Days Qty: 30 0RF aspirin 81 mg Tablet,Delayed Release (Dr/Ec) 81 mg PO DAILY 30 Days Qty: 30 0RF pantoprazole 40 mg Tablet,Delayed Release (Dr/Ec) 40 mg PO DAILY 30 Days Qty: 30 0RF Jardiance 10 mg tablet 10 mg PO DAILY 30 Days Qty: 30 0RF Continued glimepiride 4 mg tablet 4 mg PO DAILY lisinopril 40 mg tablet 40 mg PO DAILY amlodipine 5 mg tablet 5 mg PO DAILY levothyroxine 25 mcg tablet 25 mcg PO QAM flaxseed oil 1,000 mg Capsule 1,000 mg PO DAILY Rx Instructions: administer with a meal metoprolol succinate 25 mg tablet extended release 24 hr 25 mg PO DAILY metformin 500 mg tablet extended release 24 hr 2,000 mg PO DAILY Men's Multivitamin 200-60-600 mcg Tablet 1 tab PO DAILY Discharge Orders: Discharge Order (Routine); Ordered 06/12/24 Ordered By: Christiana Hazel Other Ambulatory Orders: DME: Walker (Order) Location: None Selected Ordered By: Christiana Hazel MCT/Event Monitor 14 Days (Routine) Timeframe: 20240612 Facility: [facility] - Location: Radiology Ordered By: Christiana Hazel Referrals: Romy Jimenez NP [Nurse Practitioner] - 06/20/24 2:00 pm (This appointment is scheduled with Jagruti Vázquez) Makayla Jackson FNP [Nurse Practitioner] - 06/17/24 1:00 pm (BRING PHOTO ID AND INSUARCE CARDS TO APPOINTMENT) Santo Johnson MD [Physician] - 07/05/24 11:30 am () Discharge Diet: Usual diet Discharge Activity: Resume usual activity Patient Instructions: Aspirin (By mouth), Isosorbide Mononitrate (By mouth) (Imdur, Imdur ER, Ismo), Atorvastatin (By mouth) (Lipitor, Atorvaliq), Pantoprazole (By mouth) (Protonix), Empagliflozin (By mouth) (Jardiance), Coronary Artery Disease (DC), Dyspnea (DC), Dizziness (GEN), Diabetic Hyperglycemia (DC), Heart Catheterization (DC), Opioid Safety, Post Angiogram Home Care Instructions Discharge Attestations Time Spent in Discharge Care*: greater than 30 min Quality Metrics Clinical Quality Measures [ No reported AMI, CVA or VTE this stay] Coding Level of Care Code Acute Code for Chg Fwd Diagnoses Primary hypertension I10 Hypertension type: primary hypertension Abnormal stress test R94.39 Dyspnea on exertion R06.09 TIA (transient ischemic attack) G45.9
== END 2024-06-12 12:19 | disposition home or self-care (01) | DRG 287 ==
LOC: ER 14:09 → MEDSURG 15:45 → CSU 06-10 22:01
PROVIDERS: Internal Medicine Cardiovascular Disease; Nurse Practitioner Family; Admitting Provider Internal Medicine; Emergency Provider Emergency Medicine; Visit Provider Student in an Organized Health Care Education/Training Program
PROC: 4A023N7 Measurement of Cardiac Sampling and Pressure, Left Heart, Percutaneous Approach (ICD-10-PCS; principal; 2024-06-11 07:00)
DX: I25.10 Atherosclerotic heart disease of native coronary artery without angina pectoris (principal); R47.81 Slurred speech; R29.810 Facial weakness; I25.2 Old myocardial infarction; Z79.899 Other long term (current) drug therapy; Z79.84 Long term (current) use of oral hypoglycemic drugs; Z79.890 Hormone replacement therapy; Z88.8 Allergy status to other drugs, medicaments and biological substances; R27.0 Ataxia, unspecified; I10 Essential (primary) hypertension; E11.9 Type 2 diabetes mellitus without complications; Z87.891 Personal history of nicotine dependence
CPT/HCPCS: 36415; 36416; 70450; 70496; 70498; 70551; 71045; 78452; 80048; 80053; 80061; 80306; 80307; 81001; 82607; 82962; 83036; 83735; 84439; 84443; 84481; 84484; 85025; 85610; 85730; 93005; 93017; 93306; 93458; 96372; 96374; 96375; 97110; 97116; 97161; 97165; 99152; 99153; 99285; A9500; C1769; C1887; C1894; C8924; G0378; J1644; J1815; J2250; J2785; J3010; J3490; J7030; J9999; Q0163; Q9967

== ENCOUNTER → 2024-06-20 13:30 | Outpatient (BNVA) | payer MEDICARE, SELFPAY | PROVIDERS: PCP Nurse Practitioner; Visit Provider Nurse Practitioner Family | DX: I10 Essential (primary) hypertension (principal); I25.10 Atherosclerotic heart disease of native coronary artery without angina pectoris; Z79.82 Long term (current) use of aspirin; Z86.73 Personal history of transient ischemic attack (TIA), and cerebral infarction without residual deficits; Z87.891 Personal history of nicotine dependence; I63.40 Cerebral infarction due to embolism of unspecified cerebral artery | CPT/HCPCS: 99214 ==

== ENCOUNTER → 2024-07-05 10:02 | Outpatient (BNVA) | payer MEDICARE, SELFPAY | PROVIDERS: Visit Provider Internal Medicine | DX: E11.9 Type 2 diabetes mellitus without complications (principal); Z09 Encounter for follow-up examination after completed treatment for conditions other than malignant neoplasm; G45.9 Transient cerebral ischemic attack, unspecified; I10 Essential (primary) hypertension; I63.40 Cerebral infarction due to embolism of unspecified cerebral artery; I25.2 Old myocardial infarction; E78.2 Mixed hyperlipidemia | CPT/HCPCS: 99204 ==

== ENCOUNTER → 2024-10-10 10:24 | Outpatient (BNVA) | payer MEDICARE, SELFPAY | PROVIDERS: PCP Nurse Practitioner; Visit Provider Internal Medicine Cardiovascular Disease | DX: I25.10 Atherosclerotic heart disease of native coronary artery without angina pectoris (principal); Z86.73 Personal history of transient ischemic attack (TIA), and cerebral infarction without residual deficits; Z79.82 Long term (current) use of aspirin; I25.2 Old myocardial infarction | CPT/HCPCS: 99214 ==

== ENCOUNTER → 2024-11-06 09:10 | Outpatient (BNVA) | payer MEDICARE, SELFPAY | PROVIDERS: PCP Nurse Practitioner; Visit Provider Internal Medicine | DX: E78.2 Mixed hyperlipidemia (principal); I25.2 Old myocardial infarction; E11.9 Type 2 diabetes mellitus without complications; I63.40 Cerebral infarction due to embolism of unspecified cerebral artery | CPT/HCPCS: 36415; 80053; 80061; 82044; 83036 ==

== ENCOUNTER → 2025-01-28 12:59 | Outpatient (BNVA) | payer MEDICARE, SELFPAY | PROVIDERS: PCP Nurse Practitioner; Referring Provider Internal Medicine; Visit Provider Internal Medicine | DX: E11.9 Type 2 diabetes mellitus without complications (principal); I63.40 Cerebral infarction due to embolism of unspecified cerebral artery | CPT/HCPCS: 80053; 80061; 82043; 83036 ==

== ENCOUNTER 2025-01-29 22:17 | Emergency (ER) | payer MEDICARE, SELFPAY ==
--- OUTSIDE RECORDS SUMMARY | 2025-01-29 22:27 | XMS_ITS | Clinical Summary ---
Author Organization [facility] Address [address] [place] [address] Phone Care Team Providers Care Gymnastic Coach Name Role Phone Unavailable Primary Care Provider Unavailabl e Allergies Active Allergy Reactions Criticality Noted Date Comments Meprobamate Compound Confusion Low 06/25/2024 Medications pantoprazole (PROTONIX) 40 mg Tablet, Delayed Release (E.C.) Take 1 Tablet by mouth daily. 5 Active metoprolol succinate (TOPROL XL) 25 mg Extended Release 24 hour tablet Take 25 mg by mouth daily. 5 Active metFORMIN (GLUCOPHAGE XR) 500 mg Extended Release 24 hour tablet Take 2,000 mg by mouth daily with breakfast. 5 Active lisinopriL (PRINIVIL) 40 mg tablet Take 1 Tablet by mouth daily. 5 Active levothyroxine 25 mcg tablet Take 25 mcg by mouth daily in the morning. 5 Active isosorbide mononitrate (IMDUR) 30 mg Extended Release 24 hour tablet Take 1 Tablet by mouth daily. 5 Active glimepiride (AMARYL) 4 mg tablet Take 4 mg by mouth daily with breakfast. 5 Active fluticasone propionate (FLONASE) 50 mcg/spray [place], Suspension nasal inhaler Administer 2 Sprays in each nostril daily. 5 Active Jardiance 10 mg tablet Take 1 Tablet by mouth daily. 5 Active OneTouch Verio test strips Strip 1 Strip by See Admin Instructions route 4 times daily before meals and at bedtime. 5 Active atorvastatin (LIPITOR) 80 mg tablet Take 80 mg by mouth daily at bedtime. 5 Active aspirin (ECOTRIN EC) 81 mg Tablet, Delayed Release (E.C.) Take 1 Tablet by mouth daily. 5 Active amLODIPine (NORVASC) 5 mg tablet Take 1 Tablet by mouth daily. 5 Active multivit-min/fol ic/vit K/lycop (MEN'S MULTIVITAMIN ORAL) Take 1 Tablet by mouth daily. Active flaxseed Oil 1,000 mg Capsule Take 1 Capsule by mouth daily. Active Active Problems Problem Noted Date Diagnosed Date Benign essential HTN 06/25/2024 Type 2 diabetes mellitus wit hout complication, without long-term current use of insulin 06/25/2024 History of TIA (transient ischemic attack) and s troke 06/10/2024 Encounters Date Type Department Care Team Description 01/14/2025 External Device Data STL ABSTRACTION Provider, Abstract from Last 3 Months Social History Tobacco Use Types Packs/Day Years Used Date Smoking Tobacco: Former Cigarettes Smokeless Tobacco: Never Tobacco Cessation:Counseling Given: Not Answered Sex and Gender Information Value Date Recorded Sex Assigned at Not on file Legal Sex Male 12:29 PM CDT Gender Identity Not on file Sexual Orientation Not on file Last Filed Vital Signs Vital Sign Reading Time Taken Comments Blood Pressure 122/64 06/26/2024 2:36 PM CDT Pulse 73 06/26/2024 2:52 PM CDT Temperature - - Respiratory Rate - - Oxygen Saturation 97% 06/26/2024 2:52 PM CDT RA after walk Inhaled Oxygen Concentration - - Weight 71.2 kg (157 lb) 06/26/2024 2:36 PM CDT Height 172.7 cm (5' 8 ) 06/26/2024 2:36 PM CDT Body Mass Index 23.87 06/26/2024 2:36 PM CDT Plan of Treatment Health Maintenance Due Date Last Done Comments DIABETES ANNUAL FOOT EXAM 1958 DIABETES ANNUAL RETINAL EXAM 1958 DIABETES HBA1C Q 6 MONTHS 1958 DIABETES MICROALBUMIN ANNUAL SCREEN 1958 LDL CHOLESTEROL ANNUAL 1958 DTAP/TDAP/TD VACCINES (1 - Tdap) 08/25/1959 ZOSTER VACCINE (1 of 2) 1990 RSV VACCINE (60+ or ) (1 - 1-dose 75+ series) 08/25/2015 INFLUENZA VACCINE (#1) 2024 PNEUMOCOCCAL VACCINE 50+ YEARS Completed 10/19/2022 Insurance [employer]BS MEDICARE HMO
[2025-01-29 22:30] VITALS: BP 172/95; PULSE 90; RESP 16; TEMP 36.5; O2SAT 95; BMI 22.6
[2025-01-29 23:09] LABS: Glucose Urine UA 3+ (Normal); Nitrate Urine Negative (Negative)
[2025-01-29 23:11] LABS: Add Urine Microscopic? YES
[2025-01-29 23:21] LABS: Specific Gravity, Urine 1.036 (1.005-1.030)
[2025-01-30 02:36] LABS: Hematocrit 44.2 % (37-53); Hemoglobin 14.70 g/dL (11.27-16.99); Mean Corpuscular HGB Conc 33.3 g/dL (30-55); Mean Corpuscular Hemoglobin 31.5 pg (27-33); Mean Corpuscular Volume 94.6 fl (82-101); Nucleated Red Blood Cells % 0 %; Platelet Count 174 10^3/cmm (157-399); Red Blood Count 4.67 10^6/uL (3.85-5.65); White Blood Count 7.00 10^3/uL (3.29-11.43)
[2025-01-30 02:37] LABS: Base Excess VBG -3.2 mmol/L (-3.0-3.0); Blood Gas Allen Test Pos; Blood Gas Operator Identificat gerca; Blood Gas Sample Type Venous; HCO3 VBG 23.6 mmol/L (24-28); PCO2 VBG 47.5 mmHg (41-51); PO2 VBG 26.1 mmHg (25-40); Venous Blood Gas Hematocrit 48.0 % (42-52); pH VBG 7.30 (7.32-7.42)
[2025-01-30 02:40] VITALS: BP 182/109; PULSE 81; RESP 16; TEMP 36.5; O2SAT 97
[2025-01-30] MEDS: insulin regular-human 100 units/1 mL 7 UNIT IVP (02:42)
--- NOTE | 2025-01-30 02:44 | W.ED.RECABL ---
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 Patient feels generally weak over the last several days with increased thirst and increased urination but otherwise with normal mental status no pain related complaints no fevers no cough no vomiting or diarrhea. reports that he has a poorly controlled diet and frequently eats high glycemic index foods especially bread, he drinks about 3-4 bottles of water per day, he is not currently on insulin. Related Data Home Medications ?Medication ?Instructions ?Recorded ?Confirmed metformin 500 mg tablet,extended 2,000 mg PO DAILY 06/07/24 11/18/24 release 24 hr yuduknha-xsa-bhmok acid 200 1 tab PO DAILY 06/07/24 11/18/24 mcg-vit K1 60 mcg-lycopene 600 mcg tablet (Men's Multivitamin) blood sugar diagnostic (OneTouch #10 ea 07/05/24 11/18/24 Verio test strips) Previous Rx's ?Medication ?Instructions ?Recorded levothyroxine 25 mcg tablet 25 mcg PO QAM #90 tabs 08/19/24 aspirin 325 mg tablet 325 mg PO DAILY #90 tabs 10/10/24 isosorbide mononitrate 30 mg 30 mg PO DAILY #90 tabs 11/18/24 tablet,extended release 24 hr atorvastatin 40 mg tablet (Lipitor) 40 mg PO DAILY #90 tabs 11/21/24 empagliflozin 10 mg tablet 10 mg PO DAILY #90 tabs 11/25/24 (Jardiance) sitagliptin phosphate 50 mg tablet 50 mg PO DAILY 30 days #30 tabs 12/04/24 (Januvia) amlodipine 5 mg tablet See Rx Instructions .Route 12/09/24 .COMPLEX #30 tabs metoprolol succinate 25 mg See Rx Instructions .Route 12/09/24 tablet,extended release 24 hr .COMPLEX #30 tabs Allergies Allergy/AdvReac Type Severity Reaction Status Date / Time meprobamate (From Equanil) Allergy Intermediate ADR-Confusi Verified 01/29/25 22:38 on [facility] PFSH: Medical History History of IN (myocardial infarction) 1982 TIA (transient ischemic attack) Social History Smoking and tobacco/nicotine status: unknown if used tobacco/nicotine Physical Exam Narrative: EXAM NARRATIVE: Gen: A&Ox4, no acute distress, nontoxic appearing HEENT: Normocephalic, atraumatic, no scleral icterus, external ears normal, dry mucous membranes Neck: Supple, full range of motion, no observable masses Lungs: No Respiratory distress, Lungs clear to auscultation bilaterally no rales, rhonchi, wheezing CV: Regular rate and rhythm, no murmur, no pitting edema to lower extremities bilaterally Abdomen: Soft, nondistended, nontender to palpation MSK: No joint swelling, FROM all 4 extremities Skin: No rashes, petechiae, lesions. Normal color per patient. Neuro: Alert and oriented, no slurred speech, sensation and strength grossly intact all 4 extremities Psych: Appropriate for situation. Course Reevaluation(s): Reevaluation #1: Patient reassessed at this time, still somewhat hypertensive and in asymptomatic fashion, blood work not meeting technical criteria for DKA but does show some trend towards development of acidosis with pH anion gap and bicarb all borderline normal/mildly decreased, patient's blood sugar has significantly improved with IV fluids and single dose of IV regular insulin now down to the 200 range, will give a dose of subcutaneous Lantus, patient is understanding of the need to increase his hydration at home and decrease his carbohydrate intake, he will follow-up with his radar systems engineer on Monday to discuss possible initiation of insulin. I discussed with the patient as well as the and son at bedside regarding warning signs to come back to the ER for including increased lethargy fatigue increased urine output abdominal pain vomiting or confusion. Time: 04:19 Vital Signs: Vital signs: Vital Signs Temperature 97.7 F 01/30/25 02:40 Pulse Rate 81 01/30/25 02:40 Respiratory Rate 16 01/30/25 02:40 Blood Pressure 182/109 01/30/25 02:40 Pulse Oximetry 97 01/30/25 02:40 Oxygen Delivery Me thod Room Air 01/30/25 02:40 MDM - Recheck/Abnormal Lab/Rx Medical Decision Making 84-year-old male history of hypertension hyperlipidemia and [id number]-[id number] diabetes CAD with IN in the past and stroke, presenting to the emergency department with marked hyperglycemia over the last several days, measured in the 600s on blood work on Monday and ranging in the 300-400 range on home checks by over the last 2 days, symptoms associated include generalized weakness with increased thirst and increased urination, no confusion or lethargy, no infectious signs or symptoms, on exam patient has dry mucous membranes but is otherwise well-appearing without hypoxia or tachypnea, he does have an asymptomatic marked hypertension 180/110, plan for hydration, dose of IV insulin, blood work to rule out ANA or DKA, reassess for disposition but if no DKA present would anticipate correction of hyperglycemia in the ER with discharge to follow-up with outpatient endocrinology to consider initiation of insulin. I did discuss with with the patient and he does not currently want to start insulin. I did also discuss dietary improvements with them that could reduce the chances of him needing insulin administration to include reducing carbohydrate intake which he and endorsed understanding of. Lab Data Blood work showing no leukocytosis or anemia, patient does have minimally decreased bicarbonate 21, minimally decreased pH 7.30, elevated anion gap also mild to 20, no ANA 01/30/25 02:30 01/30/25 02:30 Laboratory Results WBC 7.00 10^3/uL (3.29-11.43) 01/30/25 02:30 RBC 4.67 10^6/uL (3.85-5.65) 01/30/25 02:30 Hgb 14.70 g/dL (11.27-16.99) 01/30/25 02:30 Hct 44.2 % (37-53) 01/30/25 02:30 MCV 94.6 fl (82-101) 01/30/25 02:30 MCH 31.5 pg (27-33) 01/30/25 02:30 MCHC 33.3 g/dL (30-55) 01/30/25 02:30 RDW 12.7 % (12.1-15.1) 01/30/25 02:30 Plt Count 174 10^3/cmm (157-399) 01/30/25 02:30 MPV 9.4 fL (7.4-10.4) 01/30/25 02:30 Neut % (Auto) 60.7 % 01/30/25 02:30 Lymph % (Auto) 26.7 % 01/30/25 02:30 [place] % (Auto) 10.3 % 01/30/25 02:30 Eos % (Auto) 1.0 % 01/30/25 02:30 Baso % (Auto) 0.9 % 01/30/25 02:30 Neut # (Auto) 4.25 10^3/uL (1.8-7.7) 01/30/25 02:30 Lymph # (Auto) 1.9 10^3/uL (0.8-4.8) 01/30/25 02:30 [place] # (Auto) 0.7 10^3/uL (0.2-0.9) 01/30/25 02:30 Eos # (Auto) 0.1 10^3/uL (0.0-0.8) 01/30/25 02:30 Baso # (Auto) 0.1 10^3/uL (0.0-0.1) 01/30/25 02:30 Nucleated RBC % (auto) 0 % 01/30/25 02:30 Nucleated RBCs # 0.0 /100WBC 01/30/25 02:30 Specimen Type Venous 01/30/25 02:27 Juan C Test Pos 01/30/25 02:27 VBG pH 7.30 (7.32-7.42) L 01/30/25 02:27 VBG pCO2 47.5 mmHg (41-51) 01/30/25 02:27 VBG pO2 26.1 mmHg (25-40) 01/30/25 02:27 VBG HCO3 23.6 mmol/L (24-28) L 01/30/25 02:27 VBG Base Excess -3.2 mmol/L (-3.0-3.0) L 01/30/25 02:27 VBG Hematocrit 48.0 % (42-52) 01/30/25 02:27 O2 Delivery Device Room air 01/30/25 02:27 FiO2 21.0 % 01/30/25 02:27 Line Installer Trolley ID keith 01/30/25 02:27 Sodium 135 mmol/L (136-145) L 01/30/25 02:30 Potassium 4.2 mmol/L (3.5-5.1) 01/30/25 02:30 Chloride 98 mmol/L (98-107) 01/30/25 02:30 Carbon Dioxide 21 mmol/L (22-29) L 01/30/25 02:30 Anion Gap 20.2 (5-19) H 01/30/25 02:30 BUN 27 mg/dL (8-23) H 01/30/25 02:30 Creatinine 1.0 mg/dL (0.7-1.2) 01/30/25 02:30 GFR Calculation Not Reportable 01/30/25 02:30 Glucose 330 mg/dL (65-115) H 01/30/25 02:30 POC Glucose 219 mg/dL (70-110) H 01/30/25 03:51 Calculated Osmolality 298 mOsm/kg (285-295) H 01/30/25 02:30 Calcium 10.1 mg/dL (8.5-10.5) 01/30/25 02:30 Magnesium 2.2 mg/dL (1.7-2.3) 01/30/25 02:30 Total Bilirubin 0.4 mg/dL (0.15-1.2) 01/30/25 02:30 AST 18 U/L (0-40) 01/30/25 02:30 ALT 18 U/L (0-41) 01/30/25 02:30 Alkaline Phosphatase 74 U/L (40-130) 01/30/25 02:30 Total Protein 7.5 g/dL (6.6-8.7) 01/30/25 02:30 Albumin 4.3 g/dL (3.5-5.2) 01/30/25 02:30 Globulin 3.2 g/dL (1.3-4.6) 01/30/25 02:30 Urine Color Yellow (Yellow) 01/30/25 02:47 Urine Appearance Clear (CLEAR) 01/30/25 02:47 Urine pH 5.0 (5-7) 01/30/25 02:47 Ur Specific [place] 1.036 (1.005-1.030) H 01/30/25 02:47 Urine Protein Trace (Negative) A 01/30/25 02:47 Urine Glucose (UA) 3+ (Normal) H 01/30/25 02:47 Urine Ketones 1+ (Negative) H 01/30/25 02:47 Urine Blood Negative (Negative) 01/30/25 02:47 Urine Nitrate Negative (Negative) 01/30/25 02:47 Urine Bilirubin Negative (Negative) 01/30/25 02:47 Urine Urobilinogen 0.2 mg/dL (Negative) 01/30/25 02:47 Ur Leukocyte Esterase Negative (Negative) 01/30/25 02:47 Urine RBC 0-2 /hpf (0-2) 01/30/25 02:47 Urine WBC 0-5 /hpf (0-5) 01/30/25 02:47 Ur Squamous Epith Cells 0-5 /hpf (0-5) 01/30/25 02:47 Amorphous Sediment Not Reportable 01/30/25 02:47 Urine Bacteria None seen /hpf (NONE) 01/30/25 02:47 Hyaline Casts 0.40 /lpf 01/30/25 02:47 No radiology studies performed this visit Discharge Plan Discharge Patient Disposition: Home Clinical Impression: Acute hyperglycemia Condition: Stable Prescriptions: No Action aspirin 325 mg tablet 325 mg PO DAILY Qty: 90 3RF levothyroxine 25 mcg tablet 25 mcg PO QAM Qty: 90 3RF isosorbide mononitrate 30 mg tablet extended release 24 hr 30 mg PO DAILY Qty: 90 3RF (DME) OneTouch Verio test strips Strip See Rx Instructions .ROUTE .MEDSUPPLY Qty: 10 Rx Instructions: As directed atorvastatin [Lipitor] 40 mg tablet 40 mg PO DAILY Qty: 90 3RF Jardiance 10 mg tablet 10 mg PO DAILY Qty: 90 0RF Januvia 50 mg tablet 50 mg PO DAILY 30 Days Qty: 30 1RF metoprolol succinate 25 mg tablet extended release 24 hr See Rx Instructions .ROUTE .COMPLEX Qty: 30 3RF Dose Instruction: TAKE ONE TABLET BY MOUTH DAILY Rx Instructions: TAKE ONE TABLET BY MOUTH DAILY amlodipine 5 mg tablet See Rx Instructions .ROUTE .COMPLEX Qty: 30 3RF Dose Instruction: TAKE ONE TABLET BY MOUTH DAILY Rx Instructions: TAKE ONE TABLET BY MOUTH DAILY metformin 500 mg tablet extended release 24 hr 2,000 mg PO DAILY Men's Multivitamin 200-60-600 mcg Tablet 1 tab PO DAILY Discharge Orders: Discharge ED (Routine); Ordered 01/30/25 Ordered By: Joe Glover Referrals: Makayla Jackson FNP [Primary Care Provider, Nurse Practitioner] Patient Instructions: Patient Portal & [facility] Instructions, Diabetic Hyperglycemia (ED) Activity Restrictions/Additional Instructions: You were seen in the emergency department for significantly elevated blood sugar which improved with fluids and insulin administration in the emergency department. Your blood work did not show any severe buildup of acid in your bloodstream although did show evidence of borderline increase which should be closely monitored. You should follow-up with your radar systems engineer next week as scheduled to discuss possible alteration to your diabetic regimen which may include initiation of insulin, you should return to the emergency department if you develop increased weakness or fatigue, confusion, increased urine output or decreased ability to take in food or fluids leading to dehydration, abdominal symptoms such as pain or vomiting, or any other concerns. Print Language: Telugu Coding Level of Care Code ED Steward/Stewardess Dining Room for Alexia Bhatt
[2025-01-30 03:03] LABS: Alanine Aminotransferase 18 U/L (0-41); Albumin Level 4.3 g/dL (3.5-5.2); Alkaline Phosphatase 74 U/L (40-130); Anion Gap 20.2 (5-19); Aspartate Amino Transferase 18 U/L (0-40); Blood Urea Nitrogen 27 mg/dL (8-23); Calcium 10.1 mg/dL (8.5-10.5); Carbon Dioxide 21 mmol/L (22-29); Chloride 98 mmol/L (98-107); Globulin 3.2 g/dL (1.3-4.6); Glucose 330 mg/dL (65-115); Magnesium 2.2 mg/dL (1.7-2.3); Osmolality Calculated 298 mOsm/kg (285-295); Potassium 4.2 mmol/L (3.5-5.1); Sodium 135 mmol/L (136-145); Total Protein 7.5 g/dL (6.6-8.7)
[2025-01-30 03:11] LABS: Glucose Urine UA 3+ (Normal); Nitrate Urine Negative (Negative)
[2025-01-30 03:22] LABS: Specific Gravity, Urine 1.036 (1.005-1.030)
[2025-01-30] MEDS: insulin glargine 100 units/1 mL 10 UNIT SUBCUT (04:50)
[2025-01-30 04:54] VITALS: BP 155/97; PULSE 78; RESP 16; O2SAT 96
== END 2025-01-30 04:55 | disposition home or self-care (01) ==
PROVIDERS: Emergency Provider Student in an Organized Health Care Education/Training Program; PCP Nurse Practitioner
DX: E11.65 Type 2 diabetes mellitus with hyperglycemia (principal); E78.5 Hyperlipidemia, unspecified; I10 Essential (primary) hypertension; I25.10 Atherosclerotic heart disease of native coronary artery without angina pectoris; Z86.73 Personal history of transient ischemic attack (TIA), and cerebral infarction without residual deficits; Z79.84 Long term (current) use of oral hypoglycemic drugs; Z79.4 Long term (current) use of insulin; Z79.82 Long term (current) use of aspirin
CPT/HCPCS: 36416; 80053; 81001; 82803; 82962; 83735; 85025; 96372; 96374; 99284; J1815; J7030

== ENCOUNTER → 2025-02-11 10:10 | Outpatient (BNVA) | payer MEDICARE, SELFPAY | PROVIDERS: PCP Nurse Practitioner; Visit Provider Internal Medicine Endocrinology, Diabetes & Metabolism | DX: E11.65 Type 2 diabetes mellitus with hyperglycemia (principal); G45.9 Transient cerebral ischemic attack, unspecified; I63.9 Cerebral infarction, unspecified; I25.2 Old myocardial infarction; E78.2 Mixed hyperlipidemia | CPT/HCPCS: 99213 ==